=== PATIENT | female | born 1950 | race Caucasian/White ===

== ENCOUNTER 2018-06-20 14:08 | Emergency (ER) | payer BC, OTHER ==
[2018-06-20 14:46] VITALS: BP 123/64
--- NOTE | 2018-06-20 15:11 | UC ---
Complaint Female HPI - HPI Summary HPI Summary: Pt c/o sudden onset of dysuria and urinary frequency and urgency X 2 days. - History Of Current Complaint Chief Complaint: UCGU Stated Complaint: URINARY COMPLAINT Time Seen by Provider: 06/20/18 14:48 Hx Obtained From: Patient ?: No Onset/Duration: Sudden Onset, Lasting Days, Still Present Timing: Constant Severity Initially: Mild Severity Currently: Mild Pain Intensity: 2 Character: Dull, Burning Aggravating Factor(s): Urination Associated Signs And Symptoms: Positive: Negative - Risk Factors Ectopic Risk Factor: Negative Ovarian Torsion Risk Factor: Negative - Allergies/Home Medications Allergies/Adverse Reactions: Allergies Allergy/AdvReac Type Severity Reaction Status Date / Time aspirin Allergy interference Verified 06/20/18 14:48 with other meds yellow, blue, purple dyes Allergy Swelling Uncoded 06/20/18 14:47 narcotics AdvReac Severe Vomiting Uncoded 05/19/13 11:42 steroids AdvReac Intermediate heart race Uncoded 05/19/13 11:42 Home Medications: Home Medications Calcium Carbonate [Calcium] 600 mg PO BID 06/20/18 [History Confirmed 06/20/18] Lovastatin [Altoprev] 10 mg PO DAILY 06/20/18 [History Confirmed 06/20/18] Niacin 500 mg PO QAM 06/20/18 [History Confirmed 06/20/18] Non-Iron Multivitamin 1 tab PO DAILY 06/20/18 [History Confirmed 06/20/18] [place]-3 Fatty Acids/Fish Oil [Fish Oil 1,000 mg Capsule] 1 each PO DAILY [History Confirmed 06/20/18] Ubidecarenone [Co Q-10] 1 dose PO DAILY 06/20/18 [History Confirmed 06/20/18] guaiFENesin [Mucinex] 1,200 mg PO BID 06/20/18 [History Confirmed 06/20/18] PMH/Surg Hx/FS Hx/Imm Hx Previously Healthy: Yes Endocrine History: Dyslipidemia Cardiovascular History: Hypertension - Surgical History Surgical History: Yes Surgery Procedure, Year, and Place: 3 ; 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 hemmrhoidectomy, left knee 2015 [place]. shoulder. wrist. deviated septum - Family History Known Family History: Positive: Cardiac Disease - Social History Occupation: Retired Lives: With Family Alcohol Use: None Substance Use Type: None Smoking Status (MU): Never Smoked Tobacco Have You Smoked in the Last Year: No Review of Systems Constitutional: Negative Skin: Negative Eyes: Negative ENT: Negative Respiratory: Negative Cardiovascular: Negative Gastrointestinal: Negative Genitourinary: Dysuria, Frequency, Urgency Motor: Negative Neurovascular: Negative Musculoskeletal: Negative Neurological: Negative Psychological: Negative Is Patient Immunocompromised?: No All Other Systems Reviewed And Are Negative: Yes Physical Exam Triage Information Reviewed: Yes Appearance: Well-Appearing Vital Signs: Initial Vital Signs Temp 97.6 F 06/20/18 14:30 Pulse 79 06/20/18 14:30 Resp 22 06/20/18 14:30 BP 123/64 06/20/18 14:30 Pulse Ox 99 06/20/18 14:30 Vital Signs Reviewed: Yes Eye Exam: Normal ENT: Positive: Hearing grossly normal Dental Exam: Normal Neck exam: Normal Respiratory Exam: Normal Cardiovascular Exam: Normal Abdominal Exam: Other Abdomen Description: Positive: Nontender Musculoskeletal Exam: Normal Neurological Exam: Normal Psychological Exam: Normal Skin Exam: Normal Complaint Female Dx - Differential Dx/Diagnosis Differential Diagnosis/HQI/PQRI: Urinary Tract Infection Provider Diagnoses: UTI Discharge - Sign-Out/Discharge Documenting (check all that apply): Patient Departure - Discharge Plan Condition: Stable Disposition: HOME Prescriptions: Cephalexin CAP* [Keflex 500 CAP*] 500 mg PO Q8H #21 cap Patient Education Materials: Urinary Tract Infection in Women (ED) Referrals: Eladia Franz MD [Primary Care Provider] - If Needed Additional Instructions: Per institutional requirements, I have reviewed the chart, however, I was not consulted specifically or made aware of this patient by the above midlevel provider. I did not personally evaluate, interact with , or disposition this patient. - Billing Disposition and Condition Condition: STABLE Disposition: Home
--- NOTE | 2018-06-21 16:16 | UC ---
- Progress Note Progress Note: E. Coli on Cephalexin await sensitivity no change sreej 06/21/18 Discharge - Sign-Out/Discharge Documenting (check all that apply): Post-Discharge Follow Up - Discharge Plan Condition: Stable Disposition: HOME Prescriptions: Cephalexin CAP* [Keflex 500 CAP*] 500 mg PO Q8H #21 cap Patient Education Materials: Urinary Tract Infection in Women (ED) Referrals: Eladia Franz MD [Primary Care Provider] - If Needed Additional Instructions: Per institutional requirements, I have reviewed the chart, however, I was not consulted specifically or made aware of this patient by the above midlevel provider. I did not personally evaluate, interact with , or disposition this patient. - Billing Disposition and Condition Condition: STABLE Disposition: Home
== END 2018-06-20 15:20 | disposition home or self-care (01) ==
LOC: UCCORT 14:08
DX: N39.0 Urinary tract infection, site not specified (principal); B96.20 Unspecified Escherichia coli [E. coli] as the cause of diseases classified elsewhere; Z88.6 Allergy status to analgesic agent; Z88.5 Allergy status to narcotic agent; Z88.8 Allergy status to other drugs, medicaments and biological substances; I10 Essential (primary) hypertension; E78.5 Hyperlipidemia, unspecified
CPT/HCPCS: 81003; 87077; 87086; 87186; 99212; G0463

== ENCOUNTER 2018-07-03 12:08 | Emergency (ER) | payer BC, OTHER ==
--- OUTSIDE RECORDS SUMMARY | 2018-07-03 12:22 | XMS REPORT ---
:1950 External Reference #:[id number] Author Organization [facility] Address [address] [place] [address] Phone [phone] Care Team Providers Name Role Phone Eladia Franz MD Primary Care Physician Unavailable Payers Type Date Identification Numbers Payment Provider Subscriber Commercial Policy Number: [id number] [facility] Plan Camilo Harrison Group Number: [id number] [address] PayID: [id number] [place] [address] [facility] Policy Number: [id number] For Life Camilo Harrison PayID: [id number] [address] [place] [address] Problems Description No Information Family History Date Family Member(s) Problem(s) Comments Father Cataract Mother Cataract Aunt Macular Degeneration Social History Type Date Description Comments ETOH Use Denies alcohol use Smoking Patient has never smoked Allergies, Adverse Reactions, Alerts Date Description Reaction Status Severity Comments 06/20/2018 Aspirin active 06/20/2018 Narcan active 06/20/2018 Fluorescein active Medications Medication Date Status Form Strength Qnty SIG Indications Ordering Provider Amlodipine Active Tablets 10mg Osei Besylate Eladia OCHOA Lovastatin Active Tablets 10mg Eladia Franz MD Famciclovir Active Tablets 500mg Eladia Franz MD Vital Signs Date Vital Result Comment 06/20/2018 Intraocular Pressure Right Eye 14 mmHg tp Intraocular Pressure Left Eye 14 mmHg tp Results Description No Information Procedures Date CPT Code Description Status 07/05/2017 50825 Refraction Completed 07/05/2017 10420 Exam, Comprehensive, Est PT Completed 06/14/2016 15415 Refraction Completed 06/14/2016 89991 Exam, Comprehensive, Est PT Completed 06/15/2015 43909 Refraction Completed 06/15/2015 54766 Exam, Comprehensive, Est PT Completed 06/10/2014 13846 Refraction Completed 06/10/2014 85147 Exam, Comprehensive, Est PT Completed 10/16/2013 96574 Exam Comprehensive, New PT Completed Plan of Care Future Appointment(s):06/26/2019 10:30 am - Aleida Jameson [id number] - Aleida Jameson ODH25.13 Age-related nuclear cataract, bilateralComments: The patients cataract is not affecting ADL's at this time. Patient advised to call with change in vision, glare and/or halos while driving at night or difficulty reading fine print.Follow up:1 Year. Complete exam. BepcxmM12.393 Other vitreous opacities, bilateralComments:Discussed diagnosis with patient. Follow.H04.123 Dry eye syndrome of bilateral lacrimal glandsComments: Preservative free artificial tears both eyes 3-4 times per day.
--- OUTSIDE RECORDS SUMMARY | 2018-07-03 12:23 | XMS REPORT ---
:1950 External Reference #:[id number] [facility] Address [address] [address] Phone [phone] Care Team Providers Name Role Phone Eladia Franz MD Care Team Information Printed Circuit Boards Inspector Unavailable Payers Type Date Identification Numbers Payment Provider Subscriber Health Maintenance Policy Number: [facility] [place] [id number] Plan PayID: [id number] [address] [place] [address] Problems Date Description Provider Status Onset: 09/30/2011 Farrah Garcia PA Active Onset: 09/30/2011 Mixed hyperlipidemia Farrah Garcia PA Active Onset: 07/09/2008 Chronic pansinusitis Farrah Garcia PA Active Onset: 07/09/2008 Benign essential hypertension Farrah Garcia PA Active Onset: 01/03/2017 Pure hypercholesterolemia Eladia Franz MD Active Onset: 11/29/2017 Mitral valve disorder Eladia Franz MD Active Onset: 05/15/2017 Chronic otitis externa Eladia Franz MD Active Family History Date Family Member(s) Problem(s) Comments Father Heart Disease bypass in his 70s Father due to Endocarditis () - 83 Father Arthritis Father Migraine Headache Mother Arthritis Mother due to Old Age () - age 93 Mother Hypertension Mother Allergies Mother CHF Mother Rheumatic Fever Children 3 First Son No Current Problems Second Son No Current Problems Third Son No Current Problems Siblings 2 First Brother Poliomyelitis First Brother COPD smoker Second Brother Atrial Fibrillation Second Brother Hypertension Paternal Grandmother due to MT () Social History Type Date Description Comments Marital Status Lives With Spouse 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, [place] 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 [place] ETOH Use Denies alcohol use Smoking Patient has never smoked Daily Caffeine Does Not Consume Caffeine Allergies, Adverse Reactions, Alerts Date Description Reaction Status Severity Comments 11/28/2006 Epinephrine active 11/28/2006 Aspirin active 12/31/2014 Narcotic active 11/28/2016 Blue Dyes active 06/20/2017 Yellow Dye 10 active 11/29/2017 Purple Dye active Medications Medication Date Status Form Strength Qnty SIG Indications Ordering Provider Famciclovir 03/31 Active Tablets 500mg 6tabs within 24 B00.9 hours of Eladia martin cold sore take 3 pills orally once Amlodipine 01/03 Active Tablets 10mg 90tab 1 by mouth I10 C[place]ha Besylate /2016 s every day Eladia martin, in the MD morning Ibuprofen 12/30 Active Tablets 800mg 90tab 1 by mouth 845.00 Pool, /2014 s three Don[place]on, times a DO day with food prn Coenzyme Q10 Active Capsules 100mg 1 po daily Unknown / Acetic Active Solution 2% 60ml use a H60.63 [place] Acid-Aluminum /0000 directed Eladia martin Acetate to MD effected ear [place] 50 Active Capsules 1000mg OTC- 1 qhs Unknown /0000 Nystatin Active Powder [id number] 60gm apply to B37.2 [place]ha /0000 t/GM irritated Eladia martin area 2-3 times as needed after swimming Lovastatin Active Tablets 10mg 90tab take one E78.2 [place]ha /0000 s tablet by Eladia martin mouth every day Nasonex Active Suspension 50mcg/Act 3unit spray 1 J30.9 [place]ha /0000 s spray in Eladia martin, each nostril two times a day Calcium + D Active Chewtabs qd Unknown Magnesium Active Capsules 1 by mouth every day Advair Diskus Active Aerosol 250-50mcg 1 puff qd J45.20 Forshier , / /Dose ChelsyBLAZE lawrence Emu Oil Active Oil qd Guaifenesin Active Tablets ER 1200mg 2 po qd 12HR Diazepam 11/29 Hx Tablets 2mg 15tab 1/2 by M79.7 s mouth at Eladia martin, - bedtime 06/08 for severe /2018 nerve pain, taper off Famciclovir 06/20 Hx Tablets 500mg 21tab 1 by mouth B02.9 s three Eladia martin, - times a 06/27 day to treat shingles Guaifenex LA 02/08 Hx Tablets ER 600mg 30tab 2 tabs M79.7 12HR s twice a Eladia martin, - day MD 06/19 Amoxicillin/Clavu 11/28 Hx Tablets 875-125mg 20tab 1 by mouth J01.90 Digiovann lanate s every 12 a, - hours for Cadence, 12/08 10 days Valacyclovir HCL 09/26 Hx Tablets 500mg 8tabs take 4 B00.9 pills by Eladia martin, - mouth then 03/31 12 hours /2016 later repeat Diazepam 04/05 Hx Tablets 2mg 30tab 1 by mouth M79.7 s at bedtime Eladia martin, - as needed 11/29 for nerve /2017 pain and sleep Fluocinolone 12/28 Hx Cream 0.025% 60gm apply to Yrn Acetonide RIGHT arm Amie Raphael scaly area DO 01/03 2 times a day x 2 weeks and prn Amlodipine 09/28 Hx Tablets 10mg 30tab 1 by mouth R07.9 Yrn Besylate s daily Amie Raphael DO 09/12 Benzonatate 09/28 Hx Capsules 200mg 60cap Take One R05 s Capsule By Donavon, - Mouth DO 01/03 Times A Day as Needed For Cough Benzonatate 02/04 Hx Capsules 200mg 30cap 1 by mouth Pool s three Donavon, - times a DO 02/14 day as needed cough Amlodipine 02/17 Hx Capsules 10-20mg 90cap 1 po qd R07.9 Yrn, Besylate/Benazepr /2013 s [place] il Hydrochloride - DO 09/28 Nasonex 10/25 Hx Suspension 50mcg/Act 1unit 1 sprays Yrn s each Donavon, - nostril DO 07/01 Patanol 02/25 Hx Solution 0.1% 10ml 1-2 gtt ou [place] bid prn Kai, - 11/29 Patanol 02/25 Hx Solution 0.1% 10ml 1-2 gtt ou [place] bid prn Kai, - 07/01 Diphenhydramine 02/23 Hx Tablets 25mg prn QHS [place], HCL Kai, - 12/30 Diphenhydramine 02/23 Hx Tablets 25mg prn QHS [place], HCL /2008 Kai, - 07/01 Guaifenesin 11/28 Hx Solution 100mg/5ML 500un Dye Free 2 its po bid Donavon, - DO 11/28 Triamcinolone Hx Ointment 0.025% 80gm apply Pool, Acetonide / sparingly Donavon, - to DO 01/03 area bid as needed Metaxalone Hx Tablets 800mg 30tab 1 by mouth M79.7 Pool s every Donavon, - night at DO 08 bedtime as needed muscle spasm Meclizine HCL Hx Tablets 12.5mg 1-2 po tid T75.3xxS Unknown / prn - dizziness 05/15 H81.399 Guaifenesin NR - Hx Liquid 100mg/5ML 500units Dye Free M79.7 Unknown 02/08/2017 2 po bid Amlodipine - Hx Tablets 5mg 90tabs 1 by I10 Karine Franz 01/03/2017 augie Montilla MD every day Immunizations CPT Code Status Date Vaccine Reaction Lot # [id number] Given 06/08/2018 Pneumococcal 23 Immunization Adult Or [id number] Immunosuppressed Patient 29380 Given 05/15/2017 Prevnar 13 Pneumococal Conjugate Vaccine [id number] 46905 Given 08/17/2016 Fluzone Highdose Age 65 And Over KINNEYS Preservative & Antibiotic Free Q2036 Given 11/13/2015 Flulaval Immunization 00440 Given 11/13/2014 Zoster (Zostavax) 26028 Given 09/04/2014 Afluria Or Fluvirin Flu Vac Intramuscular 89416 Given 06/23/2014 Tdap (Adacel) Ages 7 And Above Only 69142 Given 07/18/2013 Afluria Or Fluvirin Flu Vac Intramuscular 52743 Given 08/09/2012 Afluria Or Fluvirin Flu Vac Intramuscular 24384 Given 08/27/2010 Afluria Or Fluvirin Flu Vac Intramuscular 88019 Given 08/27/2009 Afluria Or Fluvirin Flu Vac Intramuscular Q2039 Refused 11/29/2017 Flu Vaccine NOS Vital Signs Date Vital Result Comment 06/08/2018 Body Temperature 97.4 F Weight 227.00 lb Heart Rate 86 /min BP Systolic 130 mmHg BP Diastolic 78 mmHg Height 64.5 inches 5'4.50" O2 % BldC Oximetry 97 % ra BMI (Body Mass Index) 38.4 kg/m2 11/29/2017 Weight 227.00 lb Heart Rate 88 /min BP Systolic 124 mmHg BP Diastolic 74 mmHg Respiratory Rate 16 /min Height 64 inches 5'4" 05/25/17 BMI (Body Mass Index) 39.0 kg/m2 10/13/2017 Weight 226.00 lb Heart Rate 95 /min BP Systolic 128 mmHg BP Diastolic 78 mmHg Respiratory Rate 18 /min Height 64 inches 5'4" 05/25/17 O2 % BldC Oximetry 97 % BMI (Body Mass Index) 38.8 kg/m2 06/20/2017 Body Temperature 98.8 F Weight 222.00 lb Heart Rate 74 /min BP Systolic 132 mmHg BP Diastolic 82 mmHg Respiratory Rate 18 /min Height 64 inches 5'4" 05/25/17 BMI (Body Mass Index) 38.1 kg/m2 Pain Level 8 05/18/2017 Body Temperature 97.9 F Weight 214.00 lb Heart Rate 72 /min BP Systolic 114 mmHg BP Diastolic 74 mmHg Height 64 inches 5'4" 05/25/17 BMI (Body Mass Index) 36.7 kg/m2 05/15/2017 Weight 218.44 lb Heart Rate 80 /min BP Systolic 126 mmHg BP Diastolic 78 mmHg Respiratory Rate 16 /min Height 64 inches 5'4" 05/25/17 BMI (Body Mass Index) 37.5 kg/m2 02/08/2017 Weight 220.00 lb BP Systolic 128 mmHg 80 BP Diastolic 80 mmHg 80 BP Systolic Lying Down 130 mmHg Pulse 80 BP Diastolic Lying Down 80 mmHg Pulse 80 BP Systolic Sitting 128 mmHg Pulse 76 BP Diastolic Sitting 80 mmHg Pulse 76 BP Systolic Standing 126 mmHg Pulse 80 BP Diastolic Standing 76 mmHg Pulse 80 Height 64 inches 5'4" BMI (Body Mass Index) 37.8 kg/m2 01/03/2017 Weight 218.00 lb Heart Rate 76 /min BP Systolic 124 mmHg BP Diastolic 82 mmHg Respiratory Rate 16 /min Height 64 inches 5'4" BMI (Body Mass Index) 37.4 kg/m2 11/28/2016 Body Temperature 101.3 F Weight 214.00 lb Heart Rate 120 /min BP Systolic 110 mmHg BP Diastolic 70 mmHg Respiratory Rate 18 /min Height 64 inches 5'4" O2 % BldC Oximetry 98 % Ra BMI (Body Mass Index) 36.7 kg/m2 09/26/2016 Body Temperature 98.3 F Weight 213.00 lb Heart Rate 78 /min BP Systolic 130 mmHg BP Diastolic 72 mmHg BP Systolic Recheck 126 mmHg BP Diastolic Recheck 74 mmHg Respiratory Rate 18 /min Height 64 inches 5'4" O2 % BldC Oximetry 98 % BMI (Body Mass Index) 36.6 kg/m2 08/12/2016 Body Temperature 98.8 F Weight 202.00 lb Heart Rate 76 /min BP Systolic 130 mmHg BP Diastolic 70 mmHg BP Systolic Recheck 126 mmHg BP Diastolic Recheck 74 mmHg Respiratory Rate 18 /min Height 64 inches 5'4" O2 % BldC Oximetry 98 % BMI (Body Mass Index) 34.7 kg/m2 06/22/2016 Body Temperature 98.0 F Weight 218.00 lb Heart Rate 68 /min BP Systolic 120 mmHg BP Diastolic 70 mmHg Respiratory Rate 18 /min Height 64 inches 5'4" O2 % BldC Oximetry 96 % BMI (Body Mass Index) 37.4 kg/m2 01/22/2016 Body Temperature 99.7 F Weight 224.00 lb Heart Rate 74 /min BP Systolic 128 mmHg BP Diastolic 78 mmHg Respiratory Rate 18 /min Height 64.25 inches 5'4.25" BMI (Body Mass Index) 38.1 kg/m2 12/28/2015 Weight 225.00 lb Heart Rate 70 /min BP Systolic 132 mmHg BP Diastolic 72 mmHg Respiratory Rate 18 /min Height 64.25 inches 5'4.25" BMI (Body Mass Index) 38.3 kg/m2 10/27/2015 Weight 229.00 lb Heart Rate 76 /min BP Systolic 134 mmHg BP Diastolic 78 mmHg Respiratory Rate 18 /min Height 64.25 inches 5'4.25" BMI (Body Mass Index) 39.0 kg/m2 09/28/2015 Body Temperature 98.6 F Weight 224.00 lb Heart Rate 76 /min BP Systolic 130 mmHg BP Diastolic 74 mmHg Respiratory Rate 18 /min Height 64.25 inches 5'4.25" O2 % BldC Oximetry 99 % BMI (Body Mass Index) 38.1 kg/m2 07/01/2015 Weight 224.00 lb Heart Rate 72 /min BP Systolic 128 mmHg BP Diastolic 70 mmHg Respiratory Rate 18 /min Height 64.25 inches 5'4.25" BMI (Body Mass Index) 38.1 kg/m2 03/06/2015 Body Temperature 98.8 F Weight 213.00 lb Heart Rate 84 /min BP Systolic 126 mmHg BP Diastolic 70 mmHg Respiratory Rate 18 /min Height 64.25 inches 5'4.25" BMI (Body Mass Index) 36.3 kg/m2 02/04/2015 Body Temperature 99.2 F Weight 224.00 lb Heart Rate 92 /min BP Systolic 136 mmHg BP Diastolic 80 mmHg Respiratory Rate 20 /min Height 64.25 inches 5'4.25" O2 % BldC Oximetry 98 % BMI (Body Mass Index) 38.1 kg/m2 01/13/2015 Weight 224.00 lb Heart Rate 76 /min BP Systolic 132 mmHg BP Diastolic 80 mmHg Respiratory Rate 18 /min Height 64.25 inches 5'4.25" BMI (Body Mass Index) 38.1 kg/m2 12/31/2014 Weight 222.00 lb Heart Rate 74 /min BP Systolic 118 mmHg BP Diastolic 72 mmHg Respiratory Rate 18 /min Height 64.25 inches 5'4.25" BMI (Body Mass Index) 37.8 kg/m2 12/30/2014 Weight 227.00 lb Heart Rate 76 /min BP Systolic 112 mmHg BP Diastolic 72 mmHg Respiratory Rate 18 /min Height 64.25 inches 5'4.25" BMI (Body Mass Index) 38.7 kg/m2 12/12/2014 Body Temperature 97.9 F Weight 228.00 lb Heart Rate 70 /min BP Systolic 130 mmHg BP Diastolic 72 mmHg Respiratory Rate 18 /min 10/22/2014 Weight 222.00 lb Heart Rate 72 /min BP Systolic 124 mmHg BP Diastolic 70 mmHg Respiratory Rate 18 /min Height 64.25 inches 5'4.25" 06/23/2014 Weight 218.00 lb Heart Rate 70 /min BP Systolic 130 mmHg BP Diastolic 74 mmHg Respiratory Rate 18 /min Height 64.25 inches 5'4.25" 05/28/2014 Body Temperature 98.7 F Weight 218.00 lb Heart Rate 66 /min BP Systolic 124 mmHg BP Diastolic 76 mmHg Respiratory Rate 18 /min Height 64.25 inches 5'4.25" 04/21/2014 BP Systolic 124 mmHg BP Diastolic 72 mmHg 04/21/2014 Body Temperature 98.9 F Weight 213.00 lb Heart Rate 68 /min BP Systolic 130 mmHg BP Diastolic 70 mmHg Respiratory Rate 18 /min Height 64.25 inches 5'4.25" 02/17/2014 Body Temperature 97.8 F Weight 220.00 lb Heart Rate 78 /min BP Systolic 130 mmHg BP Diastolic 80 mmHg Respiratory Rate 18 /min Height 64.25 inches 5'4.25" O2 % BldC Oximetry 98 % 01/22/2014 BP Systolic 138 mmHg BP Diastolic 88 mmHg 01/22/2014 Weight 218.00 lb Down 8# Heart Rate 70 /min BP Systolic 140 mmHg BP Diastolic 84 mmHg Respiratory Rate 18 /min Height 64.25 inches 5'4.25" 10/18/2013 Body Temperature 97.9 F Weight 226.00 lb Heart Rate 64 /min BP Systolic 130 mmHg BP Diastolic 80 mmHg Respiratory Rate 18 /min 07/18/2013 Weight 216.00 lb Heart Rate 88 /min BP Systolic 134 mmHg BP Diastolic 80 mmHg Respiratory Rate 20 /min 06/24/2013 Weight 216.00 lb Heart Rate 74 /min BP Systolic 130 mmHg BP Diastolic 76 mmHg Respiratory Rate 18 /min 06/20/2013 Body Temperature 98.8 F Weight 214.00 lb Heart Rate 68 /min BP Systolic 138 mmHg BP Diastolic 78 mmHg 05/23/2013 Body Temperature 97.6 F Weight 216.00 lb Heart Rate 68 /min BP Systolic 122 mmHg BP Diastolic 72 mmHg Respiratory Rate 18 /min 01/15/2013 Weight 226.31 lb Heart Rate 84 /min BP Systolic 124 mmHg L/LG BP Diastolic 80 mmHg L/LG Respiratory Rate 19 /min Height 64 inches 5'4" 11/30/2012 Body Temperature 99.0 F Weight 224.00 lb Heart Rate 92 /min BP Systolic 110 mmHg BP Diastolic 78 mmHg Respiratory Rate 22 /min O2 % BldC Oximetry 96 % 10/22/2012 Body Temperature 98.8 F Weight 228.00 lb Heart Rate 70 /min BP Systolic 130 mmHg BP Diastolic 70 mmHg Respiratory Rate 18 /min 09/11/2012 Weight 225.00 lb Heart Rate 76 /min BP Systolic 124 mmHg L/LG BP Diastolic 80 mmHg L/LG Respiratory Rate 19 /min Height 64 inches 5'4" 08/09/2012 Weight 227.00 lb Heart Rate 70 /min BP Systolic 142 mmHg BP Diastolic 72 mmHg Respiratory Rate 18 /min 05/10/2012 BP Systolic 136 mmHg BP Diastolic 88 mmHg 05/10/2012 Body Temperature 98.3 F Weight 227.00 lb Heart Rate 78 /min BP Systolic 130 mmHg BP Diastolic 76 mmHg Respiratory Rate 18 /min 03/30/2012 BP Systolic 132 mmHg BP Diastolic 90 mmHg 03/30/2012 Weight 230.00 lb Heart Rate 100 /min BP Systolic 142 mmHg BP Diastolic 80 mmHg Respiratory Rate 20 /min 02/06/2012 Weight 231.25 lb Heart Rate 80 /min BP Systolic 130 mmHg BP Diastolic 78 mmHg Respiratory Rate 19 /min Height 63.75 inches 5'3.75" Done On 02/06/12 10/25/2011 Body Temperature 98.6 F Weight 224.38 lb Heart Rate 80 /min BP Systolic 142 mmHg BP Diastolic 84 mmHg Respiratory Rate 18 /min Height 63.75 inches 5'3.75"/-201009/30/2011 Weight 222.00 lb Heart Rate 80 /min BP Systolic 120 mmHg BP Diastolic 90 mmHg Respiratory Rate 20 /min Height 63.75 inches 5'3.75" 07/04/2011 Body Temperature 98.7 F Weight 213.00 lb Heart Rate 72 /min BP Systolic 132 mmHg BP Diastolic 80 mmHg Respiratory Rate 16 /min Height 63.75 inches 5'3.75" 02/2102/28/2011 BP Systolic 132 mmHg BP Diastolic 84 mmHg 02/28/2011 Weight 211.00 lb Down 1# Heart Rate 78 /min BP Systolic 118 mmHg R/LG BP Diastolic 86 mmHg R/LG Respiratory Rate 16 /min Height 63.75 inches 5'3.75" 08/27/2010 BP Systolic 124 mmHg BP Diastolic 86 mmHg 08/27/2010 Weight 212.00 lb Heart Rate 80 /min BP Systolic 114 mmHg BP Diastolic 80 mmHg Respiratory Rate 16 /min 06/18/2010 BP Systolic 118 mmHg standing BP Diastolic 74 mmHg standing 06/18/2010 Weight 191.00 lb Heart Rate 84 /min BP Systolic 120 mmHg sitting BP Diastolic 82 mmHg sitting Respiratory Rate 16 /min 05/27/2010 BP Systolic 136 mmHg BP Diastolic 86 mmHg 05/27/2010 Weight 214.00 lb Heart Rate 72 /min BP Systolic 132 mmHg l arm BP Diastolic 84 mmHg l arm Respiratory Rate 16 /min 04/30/2010 BP Systolic 158 mmHg BP Diastolic 92 mmHg 04/30/2010 Weight 215.00 lb Heart Rate 78 /min BP Systolic 154 mmHg LEFT Arm/Large Cuff BP Diastolic 94 mmHg LEFT Arm/Large Cuff 02/25/2010 BP Systolic 136 mmHg BP Diastolic 82 mmHg 02/25/2010 Weight 219.00 lb Heart Rate 80 /min BP Systolic 150 mmHg 123/78 Outpt B/P Check At Local Pharmacy BP Diastolic 100 mmHg 123/78 Outpt B/P Check At Local Pharmacy Respiratory Rate 16 /min 08/27/2009 Weight 217.00 lb Heart Rate 72 /min BP Systolic 120 mmHg BP Diastolic 80 mmHg Respiratory Rate 16 /min 05/27/2009 Weight 212.00 lb Heart Rate 84 /min BP Systolic 120 mmHg BP Diastolic 80 mmHg 03/04/2009 Weight 210.00 lb Heart Rate 74 /min BP Systolic 130 mmHg BP Diastolic 80 mmHg Respiratory Rate 16 /min 02/23/2009 BP Systolic 136 mmHg BP Diastolic 84 mmHg 02/23/2009 Weight 211.00 lb Down 1# Heart Rate 72 /min BP Systolic 148 mmHg R/LG BP Diastolic 90 mmHg R/LG Respiratory Rate 15 /min 01/16/2009 Body Temperature 98.1 F Weight 212.00 lb Heart Rate 80 /min BP Systolic 140 mmHg BP Diastolic 90 mmHg Respiratory Rate 14 /min O2 % BldC Oximetry 98 % 10/22/2008 Weight 209.00 lb Heart Rate 72 /min BP Systolic 128 mmHg BP Diastolic 84 mmHg Respiratory Rate 16 /min Height 64 inches 5'4" 04/14/2008 BP Systolic 116 mmHg BP Diastolic 84 mmHg 04/14/2008 Weight 200.00 lb Heart Rate 80 /min BP Systolic 120 mmHg BP Diastolic 90 mmHg Respiratory Rate 16 /min Height 64 inches 5'4" 12/17/2007 Weight 202.00 lb Heart Rate 66 /min BP Systolic 114 mmHg BP Diastolic 86 mmHg Respiratory Rate 18 /min Height 64 inches 5'4" 10/19/2007 Weight 199.00 lb With Boots Heart Rate 92 /min BP Systolic 122 mmHg BP Diastolic 74 mmHg Respiratory Rate 18 /min Height 64 inches 5'4" 08/30/2007 BP Systolic 144 mmHg BP Diastolic 82 mmHg 08/30/2007 Weight 203.00 lb Heart Rate 72 /min BP Systolic 150 mmHg BP Diastolic 98 mmHg Respiratory Rate 18 /min Height 64 inches 5'4" 02/27/2007 Weight 222.00 lb With Boots Heart Rate 68 /min BP Systolic 124 mmHg BP Diastolic 80 mmHg Respiratory Rate 18 /min Height 64 inches 5'4" 11/28/2006 BP Systolic 128 mmHg BP Diastolic 88 mmHg 11/28/2006 Weight 225.00 lb Heart Rate 88 /min BP Systolic 140 mmHg BP Diastolic 90 mmHg Height 64 inches 5'4" Results Test Date Test Result H/L Range Note Lipid 06/01/2018 Cholesterol 188 mg/dL 50-199 1 Triglycerides 134 mg/dL 30-200 1 HDL 45 mg/dL 35-85 1, 2 Chol/ HDL Ratio 4.2 ratio 3.7-5.6 1 VLDL 27 mg/dL 2-29 1 LDL (Calc) 116 mg/dL High 20-99 1, 3 Comprehensive Met Panel-[facility] 06/01/2018 Sodium 141 mmol/L 135-146 1, 4 Potassium 3.9 mmol/L 3.5-5.2 1 Chloride# 103 mmol/L 97-110 1, 5 Carbon Dioxide 28 mmol/L 24-34 1 Glucose 101 mg/dL 70-105 1 BUN 18 mg/dL 6-26 1 Creatinine 0.7 mg/dL 0.5-1.4 1 Calcium 9.4 mg/dL 8.5-10.2 1 Total Protein 6.7 g/dL 6.0-8.0 1 Albumin 4.3 g/dL 3.6-4.9 1 Globulin 2.4 g/dL 2.0-3.5 1 A/G Ratio 1.8 Ratio 1.0-2.2 1 Total Bilirubin 0.4 mg/dL 0.1-1.3 1 Alkaline Phosphatase 77 U/L 24-140 1 Alt 25 U/L 3-42 1 Ast 19 U/L 8-42 1 Isaura Egfr >60 >60 1, 6 Non Isaura Egfr >60 >60 1, 7 Anion Gap 10 mmol/L 5-15 1, 8 Laboratory test finding 06/01/2018 CPK 73 U/L 12-199 1 CBC With Auto Diff 11/22/2017 WBC 5.1 K/uL 4.1-11.0 9 RBC 5.08 M/uL 4.00-5.40 9 Hemoglobin 15.3 gm/dL 12.0-16.0 9 Hematocrit 45.6 % 36.0-47.0 9 MCV 89.8 fL 80.0-97.0 9 MCH 30.1 pg 27.0-32.0 9 MCHC 33.5 g/dL 32.0-36.0 9 RDW 13.8 % 11.5-14.5 9 PLT Count 167 K/ul 140-400 9 MPV 10.5 FL 7.1-10.7 9 Neutrophil 67.1 % 35.0-75.0 9 Lymphocyte 22.3 % 16.0-52.0 9 Monocyte 7.4 % 2.0-10.0 9 Eosinophil 2.3 % 0.0-5.0 9 Basophil 0.9 % 0.0-4.0 9 Abs Neutrophils 3.5 K/uL 2.1-8.0 9 Abs Lymphocytes 1.1 K/uL 0.8-5.5 9 Abs Monocytes 0.4 K/uL 0.1-1.0 9 Abs Eosinophils 0.1 K/uL 0.0-0.5 9 Abs Basophils 0.0 K/uL 0.0-0.3 9 Laboratory test finding 11/22/2017 CPK 64 U/L 12-199 9 TSH 2.35 uIU/mL 0.35-4.94 9 Comprehensive Met Panel-[facility] 11/22/2017 Sodium 143 mmol/L 135-146 9, 10 Potassium 4.1 mmol/L 3.5-5.2 9 Chloride# 104 mmol/L 97-110 9, 11 Carbon Dioxide 27 mmol/L 24-34 9 Glucose 98 mg/dL 70-105 9 Creatinine 0.8 mg/dL 0.5-1.4 9 Calcium 9.7 mg/dL 8.5-10.2 9 Total Protein 6.6 g/dL 6.0-8.0 9 Albumin 4.4 g/dL 3.6-4.9 9 Globulin 2.2 g/dL 2.0-3.5 9 A/G Ratio 2.0 Ratio 1.0-2.2 9 Total Bilirubin 0.5 mg/dL 0.1-1.3 9 Alkaline Phosphatase 77 U/L 24-140 9 Alt 36 U/L 3-42 9 Ast 23 U/L 8-42 9 Isaura Egfr >60 >60 9, 12 Non Isaura Egfr >60 >60 9, 13 Anion Gap 12 mmol/L 7-16 9, 14 BUN 14 mg/dL 6-26 9 Lipid 11/22/2017 Cholesterol 193 mg/dL 50-199 9 Triglycerides 177 mg/dL 30-200 9 HDL 47 mg/dL 35-85 9, 15 Chol/ HDL Ratio 4.1 ratio 3.7-5.6 9 VLDL 35 mg/dL High 2-29 9 LDL (Calc) 111 mg/dL High 20-99 9, 16 Microalb/Creat Panel 11/22/2017 Creatinine, Urine 119.9 mg/dL 9, 17 Microalbumin < 7.0 ug/ml 5.0-20.0 9 Laboratory test finding 05/23/2017 Fit(Fecal Occult Blood) Negative Negative 18 Lipid 05/08/2017 Cholesterol 171 mg/dL <200 19 Triglycerides 139 mg/dL <150 20 HDL Cholesterol 51 mg/dL >40 21 LDL-Cholesterol 92 mg/dL < 100 22 Comprehensive Metabolic (CMP) 05/08/2017 Glucose 103 mg/dL 74-106 BUN 13 mg/dL 7-18 Creatinine 0.7 mg/dL 0.6-1.3 Glom Filtration Rate, Estimate >60 mL/min >60 If >60 mL/min >60 23 BUN/Creat 18.5 ratio Sodium 141 mmol/L 136-145 Potassium 3.7 mmol/L 3.5-5.1 Chloride 106 mmol/L 98-107 Carbon Dioxide 28 mmol/L 21-32 Anion Gap 7 mEq/L Low 8-16 Calcium 9.2 mg/dL 8.5-10.1 Total Protein 7.7 g/dL 6.4-8.2 Albumin 3.6 g/dL 3.4-5.0 Globulin 4.1 g/dL 1.9-4.3 Alb/Glob 0.9 ratio Bilirubin,Total 0.4 mg/dL 0.2-1.0 Sgot/Ast 14 U/L Low 15-37 24 SGPT/Alt 30 U/L 12-78 Alkaline Phosphatase 93 U/L 45-117 Laboratory test finding 05/08/2017 CK 66 U/L 26-192 CBC With Auto Diff 01/03/2017 WBC 5.8 K/uL 4.1-11.0 25 RBC 5.22 M/uL 4.00-5.40 25 Hemoglobin 15.7 gm/dL 12.0-16.0 25 Hematocrit 46.5 % 36.0-47.0 25 MCV 89.0 fL 80.0-97.0 25 MCH 30.0 pg 27.0-32.0 25 MCHC 33.7 g/dL 32.0-36.0 25 RDW 13.5 % 11.5-14.5 25 PLT Count 199 K/ul 140-400 25 Neutrophil 61.3 % 35.0-75.0 25 Lymphocyte 29.0 % 16.0-52.0 25 Monocyte 7.0 % 2.0-10.0 25 Eosinophil 1.7 % 0.0-5.0 25 Basophil 1.0 % 0.0-4.0 25 Abs Neutrophils 3.6 K/uL 2.1-8.0 25 Abs Lymphocytes 1.7 K/uL 0.8-5.5 25 Abs Monocytes 0.4 K/uL 0.1-1.0 25 Abs Eosinophils 0.1 K/uL 0.0-0.5 25 Abs Basophils 0.1 K/uL 0.0-0.3 25 Comprehensive Metabolic (CMP) 01/03/2017 Sodium 138 mmol/L 134-142 25 Potassium 5.1 mmol/L 3.5-5.2 25 Chloride 100 mmol/L 97-109 25 Carbon Dioxide 32 mmol/L 24-34 25 Glucose 102 mg/dL 70-105 25 BUN 15 mg/dL 6-26 25 Creatinine 0.6 mg/dL 0.5-1.4 25 Calcium 10.4 mg/dL High 8.5-10.2 25 Total Protein 7.1 g/dL 6.0-8.0 25 Albumin 4.4 g/dL 3.6-4.9 25 Globulin 2.7 g/dL 2.0-3.5 25 A/G Ratio 1.6 Ratio 1.0-2.2 25 Total Bilirubin 0.4 mg/dL 0.1-1.3 25 Alkaline Phosphatase 72 U/L 24-140 25 Alt 25 U/L 3-42 25 Ast 18 U/L 8-42 25 Anion Gap 11 mmol/L 6-14 25 Isaura Egfr >60 >60 25, 26 Non Isaura Egfr >60 >60 25, 27 Lipid 01/03/2017 Cholesterol 175 mg/dL 50-199 25 Triglycerides 253 mg/dL High 30-200 25 HDL 42 mg/dL 35-85 25, 28 Chol/ HDL Ratio 4.2 ratio 3.7-5.6 25 VLDL 51 mg/dL High 2-29 25 LDL (Calc) 82 mg/dL 20-99 25, 29 Laboratory test 01/03/2017 CPK 63 U/L 12-199 25 finding Laboratory test 01/03/2017 Hepatitis C Virus NONREACTIVE Nonreactive 25 finding Antibody [facility] ([facility]) 12/27/2016 Glucose 108 mg/dL High 74-106 30 BUN 18 mg/dL 7-18 30 Creatinine 0.7 mg/dL 0.6-1.3 30 Glom Filtration Rate, Estimate >60 mL/min >60 30 If >60 mL/min >60 30, 31 BUN/Creat 25.7 ratio 30 Sodium 143 mmol/L 136-145 30 Potassium 3.9 mmol/L 3.5-5.1 30 Chloride 106 mmol/L 98-107 30 Carbon Dioxide 29 mmol/L 21-32 30 Anion Gap 8 mEq/L 8-16 30 Calcium 9.0 mg/dL 8.5-10.1 30 Basic ([facility]) 08/12/2016 Sodium 140 mmol/L 134-142 Potassium 4.4 mmol/L 3.5-5.2 Chloride 103 mmol/L 97-109 Carbon Dioxide 31 mmol/L 24-34 Glucose 94 mg/dL 70-105 BUN 17 mg/dL 6-26 Creatinine 0.6 mg/dL 0.5-1.4 Calcium 9.5 mg/dL 8.5-10.2 Anion Gap 10 mmol/L 6-14 Non Isaura Egfr >60 >60 32 Isaura Egfr >60 >60 33 CBC With Auto Diff 08/12/2016 WBC 5.3 K/uL 4.1-11.0 RBC 5.13 M/uL 4.00-5.40 Hemoglobin 15.4 gm/dL 12.0-16.0 Hematocrit 45.7 % 36.0-47.0 MCV 89.0 fL 80.0-97.0 MCH 29.9 pg 27.0-32.0 MCHC 33.6 g/dL 32.0-36.0 RDW 14.1 % 11.5-14.5 PLT Count 171 K/ul 140-400 Neutrophil 66.2 % 35.0-75.0 Lymphocyte 24.2 % 16.0-52.0 Monocyte 7.7 % 2.0-10.0 Eosinophil 1.2 % 0.0-5.0 Basophil 0.7 % 0.0-4.0 Abs Neutrophils 3.5 K/uL 2.1-8.0 Abs Lymphocytes 1.3 K/uL 0.8-5.5 Abs Monocytes 0.4 K/uL 0.1-1.0 Abs Eosinophils 0.1 K/uL 0.0-0.5 Abs Basophils 0.0 K/uL 0.0-0.3 Protime 08/12/2016 Protime 13.6 seconds 12.0-14.4 Inr 1.1 0.9-1.1 34 Laboratory test finding 08/12/2016 Act Partial Thrombo 36.3 seconds High 23.4-35.0 35 Time CBC With Auto Diff 06/22/2016 WBC 6.1 K/uL 4.1-11.0 RBC 5.23 M/uL 4.00-5.40 Hemoglobin 15.9 gm/dL 12.0-16.0 Hematocrit 46.0 % 36.0-47.0 MCV 87.9 fL 80.0-97.0 MCH 30.3 pg 27.0-32.0 MCHC 34.5 g/dL 32.0-36.0 RDW 13.5 % 11.5-14.5 PLT Count 178 K/ul 140-400 Neutrophil 66.3 % 35.0-75.0 Lymphocyte 24.0 % 16.0-52.0 Monocyte 7.4 % 2.0-10.0 Eosinophil 1.4 % 0.0-5.0 Basophil 0.9 % 0.0-4.0 Abs Neutrophils 4.0 K/uL 2.1-8.0 Abs Lymphocytes 1.5 K/uL 0.8-5.5 Abs Monocytes 0.4 K/uL 0.1-1.0 Abs Eosinophils 0.1 K/uL 0.0-0.5 Abs Basophils 0.1 K/uL 0.0-0.3 Protime 06/22/2016 Prothrombin Time 10.5 sec 10.2-12.0 Inr 1.0 % Low 2.0-3.0 Laboratory test finding 06/22/2016 Aptt 28.6 s (22.0-32.6) 36 Laboratory test finding 06/22/2016 Hemoglobin A1c 5.8 % 4.1-5.9 37 Basic (BMP) 06/22/2016 Sodium 139 mmol/L 134-142 37 Potassium 4.3 mmol/L 3.5-5.2 37 Chloride 102 mmol/L 97-109 37 Carbon Dioxide 29 mmol/L 24-34 37 Glucose 92 mg/dL 70-105 37 BUN 16 mg/dL 6-26 37 Creatinine 0.7 mg/dL 0.5-1.4 37 Calcium 9.7 mg/dL 8.5-10.2 37 Anion Gap 12 mmol/L 6-14 37 Non Isaura Egfr >60 >60 37, 38 Isaura Egfr >60 >60 37, 39 Lipid Treatment 06/22/2016 Cholesterol 151 mg/dL 50-199 37 Triglycerides 97 mg/dL 30-200 37 HDL 45 mg/dL 35-85 37, 40 Chol/ HDL Ratio 3.4 ratio Low 3.7-5.6 37 VLDL 19 mg/dL 2-29 37 LDL (Calc) 87 mg/dL 20-99 37, 41 Alt 28 U/L 3-42 37 Ast 22 U/L 8-42 37 BMP (Basic) 12/17/2015 Basic Metabolic Panel (SEE NOTE) 42 Glucose 110 mg/dL High 74-106 BUN 11 mg/dL 7-18 Creatinine 0.7 mg/dL 0.6-1.3 Glom Filtration Rate, Estimate >60 mL/min >60 If >60 mL/min >60 43 BUN/Creat 15.7 ratio Sodium 141 mmol/L 136-145 Potassium 4.0 mmol/L 3.5-5.1 Chloride 105 mmol/L 98-107 Carbon Dioxide 30 mmol/L 21-32 Anion Gap 6 mEq/L Low 8-16 Calcium 8.7 mg/dL 8.5-10.1 CBC With Auto Diff 12/17/2015 White Blood Count 4.5 K/uL 3.1-10.7 Red Blood Count 5.07 M/uL 3.90-5.40 Hemoglobin 15.4 gm/dL 11.6-15.8 Hematocrit 45.1 % 36.0-46.1 Mean Cell Volume 89.0 fl 80.9-99.0 Mean Corpuscular HGB 30.4 pg 25.9-32.7 Mean Corpuscular HGB Conc 34.1 g/dL 30.8-34.3 Platelet Count 206 K/uL 155-360 Red Cell Distri Width SD 42.4 fl 3-47 Red Cell Distri Width %CV 13.4 % 11.7-14.4 Mean Platelet Volume 11.2 fL 8.9-12.4 Neut% 59.9 % 40.4-72.8 Lymph % 29.0 % 17.0-46.1 [place] % 8.0 % 4.3-13.2 Eo% 2.4 % 0.0-6.6 Bas% 0.7 % 0.0-1.1 Neut# 2.71 K/uL 1.8-7.0 Lymph # 1.31 K/uL Low 1.8-7.0 [place] # 0.36 K/uL 0.3-0.9 Eos # 0.11 K/uL 0.0-0.5 Baso # 0.03 K/uL 0.0-0.1 Hepatic (Liver) Panel 12/17/2015 Total Protein 7.3 g/dL 6.4-8.2 Albumin 3.7 g/dL 3.4-5.0 Globulin 3.6 g/dL 1.9-4.3 Alb/Glob 1.0 ratio Bilirubin,Total 0.4 mg/dL 0.2-1.0 Bilirubin,Direct 0.1 mg/dL 0.0-0.2 Bilirubin,Indirect 0.3 mg/dL 0.0-0.9 Sgot/Ast 29 U/L 15-37 SGPT/Alt 56 U/L 12-78 Alkaline Phosphatase 85 U/L 45-117 Lipid Panel 12/17/2015 Cholesterol 162 mg/dL <200 44 Triglycerides 130 mg/dL <150 45 HDL Cholesterol 36 mg/dL Low >40 46 LDL-Cholesterol 100 mg/dL < 100 47 Laboratory test finding 09/17/2015 Troponin-I < 0.015 ng/mL 48 Comprehensive Metabolic Panel 09/16/2015 Glucose 114 mg/dL High 74-106 BUN 15 mg/dL 7-18 Creatinine 0.8 mg/dL 0.6-1.3 Glom Filtration Rate, Estimate >60 mL/min >60 If >60 mL/min >60 49 BUN/Creat 18.7 ratio Sodium 136 mmol/L 136-145 Potassium 3.7 mmol/L 3.5-5.1 Chloride 103 mmol/L 98-107 Carbon Dioxide 25 mmol/L 21-32 Anion Gap 8 mEq/L 8-16 Calcium 8.9 mg/dL 8.5-10.1 Total Protein 7.4 g/dL 6.4-8.2 Albumin 3.9 g/dL 3.4-5.0 Globulin 3.5 g/dL 1.9-4.3 Alb/Glob 1.1 ratio Bilirubin,Total 0.2 mg/dL 0.2-1.0 Sgot/Ast 24 U/L 15-37 SGPT/Alt 46 U/L 12-78 Alkaline Phosphatase 108 U/L 45-117 Laboratory test finding 09/16/2015 CK 99 U/L 26-192 Troponin-I < 0.015 ng/mL 50 CBC W/Automated Diff 09/16/2015 White Blood Count 7.4 K/uL 3.1-10.7 Red Blood Count 4.84 M/uL 3.90-5.40 Hemoglobin 14.8 gm/dL 11.6-15.8 Hematocrit 43.5 % 36.0-46.1 Mean Cell Volume 89.9 fl 80.9-99.0 Mean Corpuscular HGB 30.6 pg 25.9-32.7 Mean Corpuscular HGB Conc 34.0 g/dL 30.8-34.3 Platelet Count 202 K/uL 155-360 Red Cell Distri Width SD 43.5 fl 3-47 Red Cell Distri Width %CV 13.6 % 11.7-14.4 Mean Platelet Volume 11.7 fL 8.9-12.4 Neut% 63.3 % 40.4-72.8 Lymph % 23.1 % 17.0-46.1 [place] % 12.0 % 4.3-13.2 Eo% 1.2 % 0.0-6.6 Bas% 0.4 % 0.0-1.1 Neut# 4.65 K/uL 1.0-7.0 Lymph # 1.70 K/uL Low 1.8-7.0 [place] # 0.88 K/uL 0.3-0.9 Eos # 0.09 K/uL 0.0-0.5 Baso # 0.03 K/uL 0.0-0.1 BMP (Basic) 06/25/2015 Glucose 96 mg/dL 74-106 BUN 15 mg/dL 7-18 Creatinine 0.7 mg/dL 0.6-1.3 Glom Filtration Rate, Estimate >60 mL/min >60 If >60 mL/min >60 51 BUN/Creat 21.4 ratio Sodium 139 mmol/L 136-145 Potassium 3.9 mmol/L 3.5-5.1 Chloride 105 mmol/L 98-107 Carbon Dioxide 28 mmol/L 21-32 Anion Gap 6 mEq/L Low 8-16 Calcium 9.0 mg/dL 8.5-10.1 CBC With Auto Diff 06/25/2015 White Blood Count 5.0 K/uL 3.1-10.7 Red Blood Count 4.75 M/uL 3.90-5.40 Hemoglobin 14.7 gm/dL 11.6-15.8 Hematocrit 43.4 % 36.0-46.1 Mean Cell Volume 91.4 fl 80.9-99.0 Mean Corpuscular HGB 30.9 pg 25.9-32.7 Mean Corpuscular HGB Conc 33.9 g/dL 30.8-34.3 Platelet Count 213 K/uL 155-360 Red Cell Distri Width SD 44.4 fl 3-47 Red Cell Distri Width %CV 13.5 % 11.7-14.4 Mean Platelet Volume 11.9 fL 8.9-12.4 Neut% 55.6 % 40.4-72.8 Lymph % 31.3 % 17.0-46.1 [place] % 10.5 % 4.3-13.2 Eo% 2.0 % 0.0-6.6 Bas% 0.6 % 0.0-1.1 Neut# 2.76 K/uL 1.0-7.0 Lymph # 1.55 K/uL Low 1.8-7.0 [place] # 0.52 K/uL 0.3-0.9 Eos # 0.10 K/uL 0.0-0.5 Baso # 0.03 K/uL 0.0-0.1 Liver Function Tests 06/25/2015 Total Protein 7.2 g/dL 6.4-8.2 Albumin 3.5 g/dL 3.4-5.0 Globulin 3.7 g/dL 1.9-4.3 Alb/Glob 0.9 ratio Bilirubin,Total 0.4 mg/dL 0.2-1.0 Bilirubin,Direct < 0.1 mg/dL 0.0-0.2 Bilirubin,Indirect 0.3 mg/dL 0.0-0.9 Sgot/Ast 16 U/L 15-37 SGPT/Alt 32 U/L 12-78 Alkaline Phosphatase 90 U/L 45-117 LDL Cholesterol Profile 06/25/2015 Cholesterol 182 mg/dL < 200 52 Triglycerides 226 mg/dL < 150 53 HDL Cholesterol 34 mg/dL > 40 54 LDL-Cholesterol 103 mg/dL < 100 55 CBC With Auto Diff 02/04/2015 WBC 4.2 K/uL 4.1-11.0 56 RBC 4.50 M/uL 4.00-5.40 56 Hemoglobin 13.7 gm/dL 12.0-16.0 56 Hematocrit 40.4 % 36.0-47.0 56 MCV 89.7 fL 80.0-97.0 56 MCH 30.3 pg 27.0-32.0 56 MCHC 33.8 g/dL 32.0-36.0 56 RDW 13.6 % 11.5-14.5 56 PLT Count 170 K/ul 140-400 56 Neutrophil 57.1 % 35.0-75.0 56 Lymphocyte 29.6 % 16.0-52.0 56 Monocyte 10.2 % High 2.0-10.0 56 Eosinophil 2.4 % 0.0-5.0 56 Basophil 0.7 % 0.0-4.0 56 Abs Neutrophils 2.4 K/uL 2.1-8.0 56 Abs Lymphocytes 1.3 K/uL 0.8-5.5 56 Abmon 0.4 K/uL 0.1-1.0 56 Abs Eosinophils 0.1 K/uL 0.0-0.5 56 Abs Basophils 0.0 K/uL 0.0-0.3 56 Basic (BMP) 02/04/2015 Sodium 137 mmol/L 134-142 56 Potassium 4.3 mmol/L 3.5-5.2 56 Chloride 104 mmol/L 97-109 56 Carbon Dioxide 23 Electrolytes <SEE NOTE> mmol/L Low 24-34 56, 57 Glucose 121 mg/dL High 70-105 56 BUN 14 mg/dL 6-26 56 Creatinine 0.6 mg/dL 0.5-1.4 56 Calcium 9.2 mg/dL 8.5-10.2 56 Anion Gap 14 mmol/L 6-14 56 Non Isaura Egfr >60 >60 56, 58 Isaura Egfr >60 >60 56, 59 PT+PTT -RL 02/04/2015 Aptt 25.9 s (22.0-32.6) 56, 60 Protime 02/04/2015 PT 10.3 s (9.2-11.9) 56 Inr 0.97 56, 61 Laboratory test 12/31/2014 Vag/Cerv Culture ok 62, 63 finding Laboratory test 12/31/2014 CA 125 9.8 U/ml 0.0-35.0 64, 65 finding Laboratory test 12/31/2014 Thin [facility] 66 finding <SEE NOTE> Laboratory test 12/31/2014 Histology [facility] 67 finding <SEE NOTE> Basic Metabolic 12/18/2014 Glucose 103 mg/dL 74-106 Panel BUN 9 mg/dL 7-18 Creatinine 0.9 mg/dL 0.6-1.3 Glom Filtration Rate, Estimate >60 mL/min >60 If >60 mL/min >60 68 BUN/Creat 10.0 ratio Sodium 140 mmol/L 136-145 Potassium 3.9 mmol/L 3.5-5.1 Chloride 105 mmol/L 98-107 Carbon Dioxide 27 mmol/L 21-32 Anion Gap 12 mEq/L 8-16 Calcium 9.4 mg/dL 8.5-10.1 LDL Cholesterol Profile 12/18/2014 Cholesterol 179 mg/dL < 200 69 Triglycerides 194 mg/dL < 150 70 HDL Cholesterol 38 mg/dL > 40 71 LDL-Cholesterol 102 mg/dL < 100 72 Laboratory test finding 12/18/2014 Sgot/Ast 22 U/L 15-37 SGPT/Alt 43 U/L 12-78 Affirm 12/12/2014 Trichomonas Vaginalis Negative Negative Gardnerella Vaginalis Negative Negative Yamilex Species Negative Negative Laboratory test finding 06/16/2014 Anion Gap 11 mEq/L 8-16 BUN 14 mg/dL 5-23 BUN/Creat 20.0 ratio Calcium 9.1 mg/dL 8.5-10.1 Carbon Dioxide 26 mEq/L 18-29 Chloride 109 mmol/L High 98-107 Creatinine 0.7 mg/dL 0.5-1.4 Glom Filtration Rate, Estimate >60 mL/min >60 Glucose 101 mg/dL 76-115 If >60 mL/min >60 73 Potassium 4.1 mmol/L 3.5-5.1 SGPT/Alt 38 U/L 30-65 Sgot/Ast 15 U/L Low 16-40 Sodium 142 mmol/L 136-145 LDL Cholesterol Profile 06/16/2014 Cholesterol 176 mg/dL 120-200 HDL Cholesterol 37 mg/dL 29-83 LDL-Cholesterol 99 mg/dL 62-185 Triglycerides 198 mg/dL 16-231 Laboratory test finding 05/28/2014 Yamilex species Negative [Negative] Gardnerella vaginalis Negative [Negative] Trichomonas vaginalis Negative [Negative] Laboratory test finding 01/15/2014 Anion Gap 8 mEq/L 8-16 BUN 14 mg/dL 5-23 BUN/Creat 20.0 ratio Calcium 9.3 mg/dL 8.5-10.1 Carbon Dioxide 31 mEq/L High 18-29 Chloride 105 mmol/L 98-107 Creatinine 0.7 mg/dL 0.5-1.4 Glom Filtration Rate, Estimate >60 mL/min >60 Glucose 93 mg/dL 76-115 Glycohemoglobin (A1c) 6.0 % 4.8-6.0 74 If >60 mL/min >60 75 Potassium 4.0 mmol/L 3.5-5.1 SGPT/Alt 44 U/L 30-65 Sgot/Ast 20 U/L 16-40 Sodium 140 mmol/L 136-145 eAG 126 mg/dL LDL Cholesterol Profile 01/15/2014 Cholesterol 189 mg/dL 120-200 HDL Cholesterol 44 mg/dL 29-83 LDL-Cholesterol 107 mg/dL 62-185 Triglycerides 190 mg/dL 16-231 Laboratory test finding 07/11/2013 Anion Gap 11 mEq/L 8-16 BUN 13 mg/dL 5-23 BUN/Creat 16.2 ratio Calcium 9.1 mg/dL 8.5-10.1 Carbon Dioxide 30 mEq/L High 18-29 Chloride 105 mmol/L 98-107 Creatinine 0.8 mg/dL 0.5-1.4 Glom Filtration Rate, Estimate >60 mL/min >60 Glucose 96 mg/dL 76-115 Glycohemoglobin (A1c) 5.7 % 4.8-6.0 76 If >60 mL/min >60 77 Potassium 3.9 mmol/L 3.5-5.1 SGPT/Alt 38 U/L 30-65 Sgot/Ast 22 U/L 16-40 Sodium 142 mmol/L 136-145 eAG 117 mg/dL LDL Cholesterol Profile 07/11/2013 Cholesterol 191 mg/dL 120-200 HDL Cholesterol 38 mg/dL 29-83 LDL-Cholesterol 113 mg/dL 62-185 Triglycerides 200 mg/dL 16-231 Laboratory test finding 06/24/2013 Yamilex species See Note 78 Gardnerella vaginalis See Note 79 Genital Culture See Note 80 Gram Stain See Note 81 Trichomonas vaginalis See Note 82 Laboratory test finding 06/21/2013 Culture Urine See Note 83 Laboratory test finding 01/08/2013 Alb/Glob 1.3 ratio Albumin 4.0 g/dL 3.5-5.0 Alkaline Phosphatase 97 U/L 50-136 Anion Gap 13 mEq/L 8-16 BUN 13 mg/dL 5-23 BUN/Creat 16.2 ratio Bas% 0.9 % 0.0-1.1 Baso # 0.05 K/uL 0.0-0.1 Bilirubin,Total 0.4 mg/dL 0.2-1.2 Calcium 9.2 mg/dL 8.5-10.1 Carbon Dioxide 31 mEq/L High 18-29 Chloride 102 mmol/L 98-107 Comprehensive Metabolic Panel See Note 84 Creatinine 0.8 mg/dL 0.5-1.4 Eo% 2.5 % 0.0-6.6 Eos # 0.13 K/uL 0.0-0.5 Globulin 3.0 g/dL 1.9-4.3 Glom Filtration Rate, Estimate >60 mL/min >60 Glucose 107 mg/dL 76-115 Hematocrit 44.7 % 36.0-46.1 Hemoglobin 15.1 gm/dL 11.6-15.8 If >60 mL/min >60 85 Lymph # 1.65 K/uL 0.8-3.4 Lymph % 31.3 % 17.0-46.1 Mean Cell Volume 88.7 fl 80.9-99.0 Mean Corpuscular HGB 30.0 pg 25.9-32.7 Mean Corpuscular HGB Conc 33.8 g/dL 30.8-34.3 Mean Platelet Volume 11.5 fL 8.9-12.4 [place] # 0.49 K/uL 0.3-0.9 [place] % 9.3 % 4.3-13.2 Neut# 2.95 K/uL 1.0-7.0 Neut% 56.0 % 40.4-72.8 Platelet Count 227 K/uL 155-360 Potassium 3.9 mmol/L 3.5-5.1 Red Blood Count 5.04 M/uL 3.90-5.40 Red Cell Distri Width %CV 13.6 % 11.7-14.4 Red Cell Distri Width SD 43.5 fl 3-47 SGPT/Alt 38 U/L 30-65 Sgot/Ast 16 U/L 16-40 Sodium 142 mmol/L 136-145 Total Protein 7.0 g/dL 6.3-8.0 White Blood Count 5.3 K/uL 3.1-10.7 LDL Cholesterol Profile 01/08/2013 Cholesterol 186 mg/dL 120-200 HDL Cholesterol 38 mg/dL 29-83 LDL-Cholesterol 109 mg/dL 62-185 Triglycerides 193 mg/dL 16-231 Laboratory test finding 08/16/2012 Anion Gap 12 BUN 13 BUN/Creat 16.2 Bas% 0.7 Baso # 0.04 Calcium 9.0 Carbon Dioxide 28 Chloride 104 Creatinine 0.8 Eo% 1.9 Eos # 0.11 Glom Filtration Rate, Estimate >60 Glucose 99 Hematocrit 44.2 Hemoglobin 14.9 If >60 86 Lymph # 1.65 Lymph % 28.8 Mean Cell Volume 90.0 Mean Corpuscular HGB 30.3 Mean Corpuscular HGB Conc 33.7 Mean Platelet Volume 11.8 [place] # 0.45 [place] % 7.9 Neut# 3.47 Neut% 60.7 Platelet Count 215 Potassium 3.9 Red Blood Count 4.91 Red Cell Distri Width %CV 13.3 Red Cell Distri Width SD 42.8 SGPT/Alt 49 Sgot/Ast 22 Sodium 140 White Blood Count 5.7 LDL Cholesterol Profile 08/16/2012 Cholesterol 169 HDL Cholesterol 36 LDL-Cholesterol 99 Triglycerides 171 Laboratory test finding 03/23/2012 Absolute Basophils 0.077 K/ul 0.0-0.3 87 Absolute Eosinophils 0.126 K/ul 0.0-0.5 87 Absolute Lymphocytes 1.51 K/ul 0.8-4.8 87 Absolute Monocytes 0.475 K/ul 0.1-1.0 87 Absolute Neutrophils 2.86 K/ul 2.05-7.63 87 Alt 52 U/L 9-52 87 Anion Gap 17 mmol/L 10-20 87 Ast 37 U/L High 14-36 87 BUN 15 mg/dL 7-18 87 BUN/CR Ratio 21.6 Ratio High 12-20 87 Basophil 1.5 % 0-2 87 Calcium 9.3 mg/dL 8.7-10.5 87 Carbon Dioxide 25 mmol/L 22-30 87 Chloride 103 mmol/L 98-107 87 Creatinine, Serum 0.7 mg/dL 0.7-1.2 87 Eosinophil 2.5 % 0-4 87 Esr (Sed Rate/Westergren) 10 SEC 0-25 87 Glucose 100 mg/dL 65-105 87 Hematocrit 47.5 % 37.0-51.0 87 Hemoglobin 15.4 GM/dl 12.0-16.0 87 Lymphocytes 29.9 % 20-44 87 MCH 29.3 pg 26.0-32.0 87 MCHC 32.5 g/dL 31.0-36.0 87 MCV 90 FL 80-97 87 Monocytes 9.4 % 2-10.0 87 Neutrophils 56.6 % 50-70 87 Platelet Count 223 K/ul 140-440 87 Potassium 4.4 mmol/L 3.6-5.0 87 RBC 5.26 M/ul 4.2-6.3 87 RDW 11.9 % 11.5-14.5 87 Sodium 141 mmol/L 137-145 87 WBC 5.0 K/ul 4.1-10.9 87 Lipid Panel 03/23/2012 Chol/HDL Ratio 4.5 87, 88 Cholesterol 176 mg/dL 50-199 87 HDL Cholesterol 39 mg/dL 29-86 87 LDL 101 mg/dL 20-129 87 Triglycerides 181 mg/dL 30-249 87 VLDL Cholesterol 36 mg/dL 87 Laboratory test finding 09/23/2011 Alt 38 U/L 9-52 87 Anion Gap 11 mmol/L 10-20 87 Ast 26 U/L 14-36 87 BUN 13 mg/dL 7-18 87 BUN/CR Ratio 18.5 Ratio 12-20 87 Calcium 9.3 mg/dL 8.7-10.5 87 Carbon Dioxide 30 mmol/L 22-30 87 Chloride 104 mmol/L 98-107 87 Creatinine, Serum 0.7 mg/dL 0.7-1.2 87 Glucose 104 mg/dL 65-105 87 Potassium 3.9 mmol/L 3.6-5.0 87 Sodium 141 mmol/L 137-145 87 Lipid Panel 09/23/2011 Chol/HDL Ratio 4.9 87, 89 Cholesterol 184 mg/dL 50-199 87 HDL Cholesterol 37 mg/dL 29-86 87 LDL 103 mg/dL 20-129 87 Triglycerides 220 mg/dL 30-249 87 VLDL Cholesterol 44 mg/dL 87 Laboratory test finding 02/28/2011 Cytology Pap See Note 90 Laboratory test finding 02/21/2011 Anion Gap 13 mEq/L 8-16 BUN 16 mg/dL 5-23 BUN/Creat 20.0 Calcium 8.9 mg/dL 8.5-10.1 Carbon Dioxide 29 mEq/L 21-32 Chloride 100 mEq/L 98-107 Creatinine 0.8 mg/dL 0.5-1.4 Glom Filtration Rate, Estimate >60 mL/min >60 Glucose 98 mg/dL 76-115 If >60 mL/min >60 91 Potassium 3.9 mEq/L 3.5-5.1 SGPT/Alt 40 U/L 30-65 92 Sgot/Ast 16 U/L 16-40 93 Sodium 138 mEq/L 136-145 LDL Cholesterol Profile 02/21/2011 Cholesterol 178 mg/dL 120-200 HDL Cholesterol 43 mg/dL 32-96 LDL-Cholesterol 112 mg/dL 62-185 Triglycerides 114 mg/dL 0-210 Laboratory test finding 08/19/2010 Anion Gap 13 mEq/L 8-16 BUN 13 mg/dL 5-23 BUN/Creat 18.5 Calcium 9.1 mg/dL 8.5-10.1 Carbon Dioxide 31 mEq/L 21-32 Chloride 104 mEq/L 98-107 Creatinine 0.7 mg/dL 0.5-1.4 Glom Filtration Rate, Estimate >60 mL/min >60 Glucose 91 mg/dL 76-115 If >60 mL/min >60 94 Potassium 4.1 mEq/L 3.5-5.1 SGPT/Alt 42 U/L 30-65 95 Sgot/Ast 17 U/L 16-40 96 Sodium 144 mEq/L 136-145 LDL Cholesterol Profile 08/19/2010 Cholesterol 204 mg/dL High 120-200 HDL Cholesterol 47 mg/dL 32-96 LDL-Cholesterol 125 mg/dL 62-185 Triglycerides 162 mg/dL 0-210 Laboratory test finding 02/18/2010 Anion Gap 10 mEq/L 8-16 BUN 13 mg/dL 5-23 BUN/Creat 18.5 Calcium 8.6 mg/dL 8.5-10.1 Carbon Dioxide 30 mEq/L 21-32 Chloride 104 mEq/L 98-107 Creatinine 0.7 mg/dL 0.5-1.4 Glom Filtration Rate, Estimate >60 mL/min >60 Glucose 100 mg/dL 76-115 If >60 mL/min >60 97 Potassium 4.1 mEq/L 3.5-5.1 SGPT/Alt 47 U/L 30-65 Sgot/Ast 15 U/L Low 16-40 Sodium 140 mEq/L 136-145 LDL Cholesterol Profile 02/18/2010 Cholesterol 204 mg/dL High 120-200 HDL Cholesterol 44 mg/dL 32-96 LDL-Cholesterol 125 mg/dL 62-185 Triglycerides 177 mg/dL 0-210 Laboratory test finding 08/20/2009 Anion Gap 14 mEq/L 8-16 BUN 12 mg/dL 5-23 BUN/Creat 15.0 Calcium 8.8 mg/dL 8.5-10.1 Carbon Dioxide 25 mEq/L 21-32 Chloride 106 mEq/L 98-107 Creatinine 0.8 mg/dL 0.5-1.4 Glom Filtration Rate, Estimate >60 mL/min >60 Glucose 96 mg/dL 76-115 If >60 mL/min >60 98 Potassium 4.0 mEq/L 3.5-5.1 SGPT/Alt 41 U/L 30-65 Sgot/Ast 18 U/L 16-40 Sodium 141 mEq/L 136-145 LDL Cholesterol Profile 08/20/2009 Cholesterol 188 mg/dL 120-200 HDL Cholesterol 41 mg/dL 32-96 LDL-Cholesterol 111 mg/dL 62-185 Triglycerides 181 mg/dL 0-210 Laboratory test finding 02/16/2009 Anion Gap 11 mEq/L 8-16 BUN 16 mg/dL 5-23 BUN/Creat 20.0 Calcium 9.1 mg/dL 8.5-10.1 Carbon Dioxide 29 mEq/L 21-32 Chloride 104 mEq/L 98-107 Creatinine 0.8 mg/dL 0.5-1.4 Glom Filtration Rate, Estimate >60 mL/min >60 Glucose 95 mg/dL 76-115 If >60 mL/min >60 99 Potassium 4.2 mEq/L 3.5-5.1 SGPT/Alt 41 U/L 30-65 Sgot/Ast 15 U/L Low 16-40 Sodium 140 mEq/L 136-145 LDL Cholesterol Profile 02/16/2009 Cholesterol 202 mg/dL High 120-200 HDL Cholesterol 49 mg/dL 32-96 LDL-Cholesterol 118 mg/dL 62-185 Triglycerides 177 mg/dL 0-210 LDL Cholesterol Profile 10/07/2008 Cholesterol 160 mg/dL 120-200 HDL Cholesterol 44 mg/dL 32-96 LDL-Cholesterol 92 mg/dL 62-185 Triglycerides 119 mg/dL 0-210 Laboratory test finding 10/07/2008 Anion Gap 11 mEq/L 8-16 BUN 10 mg/dL 5-23 BUN/Creat 16.6 Calcium 9.1 mg/dL 8.5-10.1 Carbon Dioxide 30 mEq/L 21-32 Chloride 106 mEq/L 98-107 Creatinine 0.6 mg/dL 0.5-1.4 Glom Filtration Rate, Estimate >60 mL/min >60 Glucose 95 mg/dL 76-115 If >60 mL/min >60 100 Potassium 4.0 mEq/L 3.5-5.1 SGPT/Alt 57 U/L 30-65 Sgot/Ast 23 U/L 16-40 Sodium 143 mEq/L 136-145 LDL Cholesterol Profile 04/04/2008 Cholesterol 172 mg/dL 120-200 HDL Cholesterol 51 mg/dL 32-96 LDL-Cholesterol 103 mg/dL 62-185 Triglycerides 89 mg/dL 0-210 Laboratory test finding 04/04/2008 Anion Gap 14 mEq/L 8-16 BUN 13 mg/dL 5-23 BUN/Creat 18.5 Calcium 9.4 mg/dL 8.5-10.1 Carbon Dioxide 31 mEq/L 21-32 Chloride 105 mEq/L 98-107 Creatinine 0.7 mg/dL 0.5-1.4 Glucose 90 mg/dL 76-115 Potassium 4.2 mEq/L 3.5-5.1 SGPT/Alt 48 U/L 30-65 Sgot/Ast 17 U/L 16-40 Sodium 146 mEq/L High 136-145 Laboratory test finding 02/20/2008 Stool Occult #1 Negative Stool Occult #2 Negative Stool Occult #3 Negative Laboratory test finding 12/17/2007 Cytology Pap See Note 101 HPV See Note 102 LDL Cholesterol Profile 12/11/2007 Cholesterol 180 mg/dL 120-200 HDL Cholesterol 46 mg/dL 32-96 LDL-Cholesterol 107 mg/dL 62-185 Triglycerides 137 mg/dL 0-210 Laboratory test finding 12/11/2007 SGPT/Alt 44 U/L 30-65 Sgot/Ast 18 U/L 16-40 Lipid Panel 10/12/2007 Chol/HDL Ratio 5.4 87, 103 Cholesterol 251 mg/dL High 50-199 87 HDL Cholesterol 46 mg/dL 29-86 87 LDL 178 mg/dL High 20-129 87 Triglycerides 133 mg/dL 30-249 87 VLDL Cholesterol 27 mg/dL 87 Laboratory test finding 10/12/2007 Alt 38 U/L 9-52 87 Anion Gap 13 mmol/L 10-20 87 Ast 27 U/L 14-36 87 BUN 14 mg/dL 7-18 87 BUN/CR Ratio 19.3 Ratio 12-20 87 Calcium 9.8 mg/dL 8.7-10.5 87 Carbon Dioxide 28 mmol/L 22-30 87 Chloride 102 mmol/L 98-107 87 Creatinine, Serum 0.7 mg/dL 0.7-1.2 87 Glucose 86 mg/dL 65-105 87 Potassium 3.6 mmol/L 3.6-5.0 87 Sodium 140 mmol/L 137-145 87 LDL Cholesterol Profile 03/13/2007 Cholesterol 230 mg/dL High 120-200 HDL Cholesterol 38 mg/dL 32-96 LDL-Cholesterol 169 mg/dL 62-185 Triglycerides 116 mg/dL 0-210 Laboratory test finding 03/13/2007 SGPT/Alt 50 U/L 30-65 Sgot/Ast 19 U/L 16-40 Laboratory test finding 12/26/2006 Anion Gap 14 mEq/L 8-16 BUN 16 mg/dL 5-23 BUN/Creat 17.7 Calcium 9.3 mg/dL 8.5-10.1 Carbon Dioxide 28 mEq/L 21-32 Chloride 105 mEq/L 98-107 Creatinine 0.9 mg/dL 0.5-1.4 Glucose 95 mg/dL 76-115 Hematocrit 47.1 % High 34.0-46.0 Hemoglobin 16.1 gm/dL High 11.5-15.5 Mean Cell Volume 89.6 fL 80.0-96.0 Mean Corpuscular HGB 30.6 pg 27.0-33.0 Mean Corpuscular HGB Conc 34.1 g/dL 31.7-36.0 Mean Platelet Volume 7.2 fl 6.6-10.6 Platelet Count 225 K/uL 150-400 Potassium 4.2 mEq/L 3.5-5.1 Red Blood Count 5.25 M/uL High 3.90-5.20 Red Cell Distri Width %CV 14.0 % 11.6-15.8 Sodium 143 mEq/L 136-145 White Blood Count 5.0 K/uL 3.4-10.5 LDL Cholesterol Profile 12/26/2006 Cholesterol 265 mg/dL High 120-200 HDL Cholesterol 40 mg/dL 32-96 LDL-Cholesterol 193 mg/dL High 62-185 Triglycerides 160 mg/dL 0-210 Laboratory test finding 11/28/2006 Cytology Pap See Note 104 HPV See Note 105 1 before visit 05/2018 2 Per NCEP ATP III Guidelines: Results lower than 40 mg/dL are suggestive of increased risk for coronary artery disease. Results > or=to 60 mg/dL are considered a negative risk factor. 3 Per NCEP ATP III Guidelines: Normal Population <130 Patients with medical conditions: CHD/DM Optimal: <100 Borderline high: 130-159 High: 160-189 Very high: >189 4 Updated reference range on new analyzer 5 Updated reference range on new analyzer 6 Concerning GFR Guidelines for Americans: Normal function or mild renal disease, if clinically at risk: >/=60 mL/min Moderately decreased: 30-59 Severely decreased: 15-29 Renal failure: <15 7 Concerning GFR Guidelines: Normal function or mild renal disease, if clinically at risk: >/=60 mL/min Moderately decreased: 30-59 Severely decreased: 15-29 Renal failure: <15 Glomerular Filtration Rate (GFR) is estimated based on the MDRD equation, which assumes a steady state for creatinine as recommended by the National Kidney Disease Education Program in conjunction with the National Institutes of Health and the National Kidney Foundation. Clinical conditions in which it may be necessary to measure GFR by using clearance methods include extremes of age and body size, severe malnutrition or obesity, diseases of skeletal muscle, paraplegia or quadriplegia, vegetarian diet, rapidly changing kidney function, and calculation of the dose of potentially toxic drugs that are excreted by the kidneys. 8 Updated Reference Range 9 before visit 11/2017 10 Updated reference range on new analyzer 11 Updated reference range on new analyzer 12 Concerning GFR Guidelines for Americans: Normal function or mild renal disease, if clinically at risk: >/=60 mL/min Moderately decreased: 30-59 Severely decreased: 15-29 Renal failure: <15 13 Concerning GFR Guidelines: Normal function or mild renal disease, if clinically at risk: >/=60 mL/min Moderately decreased: 30-59 Severely decreased: 15-29 Renal failure: <15 Glomerular Filtration Rate (GFR) is estimated based on the MDRD equation, which assumes a steady state for creatinine as recommended by the National Kidney Disease Education Program in conjunction with the National Institutes of Health and the National Kidney Foundation. Clinical conditions in which it may be necessary to measure GFR by using clearance methods include extremes of age and body size, severe malnutrition or obesity, diseases of skeletal muscle, paraplegia or quadriplegia, vegetarian diet, rapidly changing kidney function, and calculation of the dose of potentially toxic drugs that are excreted by the kidneys. 14 Updated reference range on new analyzer 15 Per NCEP ATP III Guidelines: Results lower than 40 mg/dL are suggestive of increased risk for coronary artery disease. Results > or=to 60 mg/dL are considered a negative risk factor. 16 Per NCEP ATP III Guidelines: Normal Population <130 Patients with medical conditions: CHD/DM Optimal: <100 Borderline high: 130-159 High: 160-189 Very high: >189 17 Unable to calculate ratio. Microalbumin <7.0 18 per pt no medicare part b, has [employer] , cards given 19 Reference Guidelines*: Desirable: ........... < 200 mg/dL Borderline High: ..... 200-239 mg/dL High: ................ >=240 mg/dL * The National Cholesterol Education Program (NCEP) 20 Reference Guidelines*: Normal: ............. < 150 mg/dL Borderline High: .... 150-199 mg/dL High: ............... 200-499 mg/dL Very High: .......... > 500 mg/dL * Source: National Cholesterol Education Program (NCEP) 21 Reference Guidelines*: Low HDL: ..... < 40 mg/dL Normal: ..... 40-60 mg/dL Desirable: ... > 60 mg/dL *The National Cholesterol Education Program(NCEP) 22 Reference Guidelines*: Optimal:........... <100 mg/dL Near Optimal....... 100-129 mg/dL Borderline High.... 130-159 mg/dL High............... 160-189 mg/dL Very High.......... >=190 mg/dL * Source: National Cholesterol Education Program (NCEP) 23 Note: Persistent reduction for 3 months or more in an eGFR <60 mL/min/1.73 m2 defines CKD. Patients with eGFR values >/=60 mL/min/1.73 m2 may also have CKD if evidence of persistent proteinuria is present. The original MDRD equation for estimated GFR is not valid for patients less than 18 years of age. Additional information may be found at [email or web address]. 24 Values below the stated reference ranges of AST and ALT can be seen in normal populations. Clinical correlation is suggested. 25 fastig before visit 05/2017 Fastin hours fastig before visit 05/2017 Fastin hours fastig before visit 05/2017 Fastin hours fastig before visit 2016 Fastin hours 26 Concerning GFR Guidelines for Americans: Normal function or mild renal disease, if clinically at risk: >/=60 mL/min Moderately decreased: 30-59 Severely decreased: 15-29 Renal failure: <15 27 Concerning GFR Guidelines: Normal function or mild renal disease, if clinically at risk: >/=60 mL/min Moderately decreased: 30-59 Severely decreased: 15-29 Renal failure: <15 Glomerular Filtration Rate (GFR) is estimated based on the MDRD equation, which assumes a steady state for creatinine as recommended by the National Kidney Disease Education Program in conjunction with the National Institutes of Health and the National Kidney Foundation. Clinical conditions in which it may be necessary to measure GFR by using clearance methods include extremes of age and body size, severe malnutrition or obesity, diseases of skeletal muscle, paraplegia or quadriplegia, vegetarian diet, rapidly changing kidney function, and calculation of the dose of potentially toxic drugs that are excreted by the kidneys. 28 Per NCEP ATP III Guidelines: Results lower than 40 mg/dL are suggestive of increased risk for coronary artery disease. Results > or=to 60 mg/dL are considered a negative risk factor. 29 Per NCEP ATP III Guidelines: Normal Population <130 Patients with medical conditions: CHD/DM Optimal: <100 Borderline high: 130-159 High: 160-189 Very high: >189 30 I10 31 Note: Persistent reduction for 3 months or more in an eGFR <60 mL/min/1.73 m2 defines CKD. Patients with eGFR values >/=60 mL/min/1.73 m2 may also have CKD if evidence of persistent proteinuria is present. The original MDRD equation for estimated GFR is not valid for patients less than 18 years of age. Additional information may be found at [email or web address]. 32 Concerning GFR Guidelines: Normal function or mild renal disease, if clinically at risk: >/=60 mL/min Moderately decreased: 30-59 Severely decreased: 15-29 Renal failure: <15 Glomerular Filtration Rate (GFR) is estimated based on the MDRD equation, which assumes a steady state for creatinine as recommended by the National Kidney Disease Education Program in conjunction with the National Institutes of Health and the National Kidney Foundation. Clinical conditions in which it may be necessary to measure GFR by using clearance methods include extremes of age and body size, severe malnutrition or obesity, diseases of skeletal muscle, paraplegia or quadriplegia, vegetarian diet, rapidly changing kidney function, and calculation of the dose of potentially toxic drugs that are excreted by the kidneys. 33 Concerning GFR Guidelines for Americans: Normal function or mild renal disease, if clinically at risk: >/=60 mL/min Moderately decreased: 30-59 Severely decreased: 15-29 Renal failure: <15 34 THERAPEUTIC INR RANGE: 2.0 - 3.0 DVT, Pulmonary embolus, prophylaxis against venous thrombosis or systemic embolization in high risk patients. 2.5 - 3.5 Mechanical heart valves 35 Is patient on heparin protocol? <Blank> Is patient on anticoagulants? <Blank> 36 Unless otherwise specified, testing performed by [facility] [employer] [address] [place] [id number] 37 6 months 38 Concerning GFR Guidelines: Normal function or mild renal disease, if clinically at risk: >/=60 mL/min Moderately decreased: 30-59 Severely decreased: 15-29 Renal failure: <15 Glomerular Filtration Rate (GFR) is estimated based on the MDRD equation, which assumes a steady state for creatinine as recommended by the National Kidney Disease Education Program in conjunction with the National Institutes of Health and the National Kidney Foundation. Clinical conditions in which it may be necessary to measure GFR by using clearance methods include extremes of age and body size, severe malnutrition or obesity, diseases of skeletal muscle, paraplegia or quadriplegia, vegetarian diet, rapidly changing kidney function, and calculation of the dose of potentially toxic drugs that are excreted by the kidneys. 39 Concerning GFR Guidelines for Americans: Normal function or mild renal disease, if clinically at risk: >/=60 mL/min Moderately decreased: 30-59 Severely decreased: 15-29 Renal failure: <15 40 Per NCEP ATP III Guidelines: Results lower than 40 mg/dL are suggestive of increased risk for coronary artery disease. Results > or=to 60 mg/dL are considered a negative risk factor. 41 Per NCEP ATP III Guidelines: Normal Population <130 Patients with medical conditions: CHD/DM Optimal: <100 Borderline high: 130-159 High: 160-189 Very high: >189 42 QUERY: Is the Patient Fasting? Y 43 Note: Persistent reduction for 3 months or more in an eGFR <60 mL/min/1.73 m2 defines CKD. Patients with eGFR values >/=60 mL/min/1.73 m2 may also have CKD if evidence of persistent proteinuria is present. The original MDRD equation for estimated GFR is not valid for patients less than 18 years of age. Additional information may be found at [email or web address]. 44 Reference Guidelines*: Desirable: ........... < 200 mg/dL Borderline High: ..... 200-239 mg/dL High: ................ >=240 mg/dL * The National Cholesterol Education Program (NCEP) 45 Reference Guidelines*: Normal: ............. < 150 mg/dL Borderline High: .... 150-199 mg/dL High: ............... 200-499 mg/dL Very High: .......... > 500 mg/dL * Source: National Cholesterol Education Program (NCEP) 46 Reference Guidelines*: Low HDL: ..... < 40 mg/dL Normal: ..... 40-60 mg/dL Desirable: ... > 60 mg/dL *The National Cholesterol Education Program(NCEP) 47 Reference Guidelines*: Optimal:........... <100 mg/dL Near Optimal....... 100-129 mg/dL Borderline High.... 130-159 mg/dL High............... 160-189 mg/dL Very High.......... >=190 mg/dL * Source: National Cholesterol Education Program (NCEP) 48 0.0 - 0.045 ng/mL: Normal 0.046 - 0.5 ng/mL: Suggestive 0.6 - 1.5 ng/mL: Consistent 49 Note: Persistent reduction for 3 months or more in an eGFR <60 mL/min/1.73 m2 defines CKD. Patients with eGFR values >/=60 mL/min/1.73 m2 may also have CKD if evidence of persistent proteinuria is present. The original MDRD equation for estimated GFR is not valid for patients less than 18 years of age. Additional information may be found at [email or web address]. 50 0.0 - 0.045 ng/mL: Normal 0.046 - 0.5 ng/mL: Suggestive 0.6 - 1.5 ng/mL: Consistent 51 Note: Persistent reduction for 3 months or more in an eGFR <60 mL/min/1.73 m2 defines CKD. Patients with eGFR values >/=60 mL/min/1.73 m2 may also have CKD if evidence of persistent proteinuria is present. The original MDRD equation for estimated GFR is not valid for patients less than 18 years of age. Additional information may be found at [email or web address]. 52 Reference Guidelines*: Desirable: ........... < 200 mg/dL Borderline High: ..... 200-239 mg/dL High: ................ >=240 mg/dL * The National Cholesterol Education Program (NCEP) 53 Reference Guidelines*: Normal: ............. < 150 mg/dL Borderline High: .... 150-199 mg/dL High: ............... 200-499 mg/dL Very High: .......... > 500 mg/dL * Source: National Cholesterol Education Program (NCEP) 54 Reference Guidelines*: Low HDL: ..... < 40 mg/dL Normal: ..... 40-60 mg/dL Desirable: ... > 60 mg/dL *The National Cholesterol Education Program(NCEP) 55 Reference Guidelines*: Optimal:........... <100 mg/dL Near Optimal....... 100-129 mg/dL Borderline High.... 130-159 mg/dL High............... 160-189 mg/dL Very High.......... >=190 mg/dL * Source: National Cholesterol Education Program (NCEP) 56 CC: Dr Dahl 57 23 Electrolytes confirmed by repeat. 58 Concerning GFR Guidelines: Normal function or mild renal disease, if clinically at risk: >/=60 mL/min Moderately decreased: 30-59 Severely decreased: 15-29 Renal failure: <15 Glomerular Filtration Rate (GFR) is estimated based on the MDRD equation, which assumes a steady state for creatinine as recommended by the National Kidney Disease Education Program in conjunction with the National Institutes of Health and the National Kidney Foundation. Clinical conditions in which it may be necessary to measure GFR by using clearance methods include extremes of age and body size, severe malnutrition or obesity, diseases of skeletal muscle, paraplegia or quadriplegia, vegetarian diet, rapidly changing kidney function, and calculation of the dose of potentially toxic drugs that are excreted by the kidneys. 59 Concerning GFR Guidelines for Americans: Normal function or mild renal disease, if clinically at risk: >/=60 mL/min Moderately decreased: 30-59 Severely decreased: 15-29 Renal failure: <15 60 Unless otherwise specified, testing performed by [employer] [email or web address] [address] 61 SUGGESTED THERAPEUTIC RANGES USING INR FOR STABILIZED ANTICOAGULATED PATIENTS: STANDARD DOSE THERAPY INR 2.0-3.0 DVT, PE, PREVENT DVT OR EMBOLISM HIGH DOSE THERAPY INR 2.5-3.5 PREVENT EMBOLISM FROM MECHANICAL HEART VALVE Unless otherwise specified, testing performed by [employer] [address] [place] [id number] 62 Fastin hours 63 SPECIMEN DESCRIPTION VAGINAL SPECIMEN GROUP B STREP CULT. NEGATIVE: BETA HEMOLYTIC STREPTOCOCCI GROUP B B Y PCR CULTURE RESULTS NORMAL VAGINAL JESSICA NO NEISSERIA GONORRHOEAE ISOLATED REPORT STATUS FINAL 01/02/2015 Unless otherwise specified, testing performed by [employer] [address] [place] [id number] 64 today letter Fastin hours 65 Beginning 01/08/07 CA125 values assayed at [facility] uses an EIA methodology manufactured by [employer] for use on the DXI analyzer. Values obtained with different assay methods or kits can not be used interchangeably. Serum CA125 measurement is not an absolute test for malignancy. The CA125 value should be used in conjunction with information available from clinical evaluation and other diagnostic procedures. 66 [employer] [address] [place] [id number] GYNECOLOGIC CYTOLOGY REPORT Accession Number: [id number] Source of Specimen(s): A: Thin Prep Cervical / Endocervical Pap Smear - One Vial Clinical Diagnosis and History: Date of Last Menstrual Period: 10 yrs ago Menstrual History: Post-menopausal Other Clinical Conditions: Last Pap Smear: 02/21 Clear Path normal REFLEX TO HPV ASSAY IF RESULTS OF THIS PAP ARE ASCUS Specimen Adequacy Satisfactory for evaluation Presence of endocervical/transformation zone component General Categorization Negative for intraepithelial lesion or malignancy Interpretation NEGATIVE FOR INTRAEPITHELIAL LESION OR MALIGNANCY Atrophy with inflammation (atrophic vaginitis) Reported: 01/02/2015 Electronically Signed Out By Francesca Cox CT(ASCP) Diabetes Specialist: Nohemi Webster SCT(ASCP)([facility]) [facility], Yousuf hardy QC Reviewed: [address] [id number] Surgical Pathology Report Specimen(s) Received A: Endometrial biopsy Clinical Diagnosis and History Endometrial biopsy by [facility], postmenopausal bleeding 64 year old, Pap done Gross Description Specimen received in formalin labeled with the patient's name is a 1.0 cc aggregate of hemorrhagic mucoid material containing scant fragments of german billy tissue and which is entirely submitted in one cassette. paw mls/jbs Diagnosis DESIGNATED ENDOMETRIAL BIOPSY: Endocervical tissue with acutely and chronically inflamed squamous metaplasia. Scant lower uterine segment. No definite endometrial cavity tissue is seen on multiple levels examined. Recommend clinical correlation, with possible submission of additional material, as clinically indicated. Technical component processed at [facility], Histopathology, [address] [place] [address], [facility]. Diagnosis and reporting performed at [facility], [address] [place] [address]. Reported: 01/05/2015 10:09 Electronically Signed Out By Sky Wiggins M.D. paw ICD9 Codes A: V71. 68 Note: Persistent reduction for 3 months or more in an eGFR <60 mL/min/1.73 m2 defines CKD. Patients with eGFR values >/=60 mL/min/1.73 m2 may also have CKD if evidence of persistent proteinuria is present. The original MDRD equation for estimated GFR is not valid for patients less than 18 years of age. Additional information may be found at [email or web address]. 69 Reference Guidelines*: Desirable: ........... < 200 mg/dL Borderline High: ..... 200-239 mg/dL High: ................ >=240 mg/dL * The National Cholesterol Education Program (NCEP) 70 Reference Guidelines*: Normal: ............. < 150 mg/dL Borderline High: .... 150-199 mg/dL High: ............... 200-499 mg/dL Very High: .......... > 500 mg/dL * Source: National Cholesterol Education Program (NCEP) 71 Reference Guidelines*: Low HDL: ..... < 40 mg/dL Normal: ..... 40-60 mg/dL Desirable: ... > 60 mg/dL *The National Cholesterol Education Program(NCEP) 72 Reference Guidelines*: Optimal:........... <100 mg/dL Near Optimal....... 100-129 mg/dL Borderline High.... 130-159 mg/dL High............... 160-189 mg/dL Very High.......... >=190 mg/dL * Source: National Cholesterol Education Program (NCEP) 73 Note: Persistent reduction for 3 months or more in an eGFR <60 mL/min/1.73 m2 defines CKD. Patients with eGFR values >/=60 mL/min/1.73 m2 may also have CKD if evidence of persistent proteinuria is present. The original MDRD equation for estimated GFR is not valid for patients less than 18 years of age. Additional information may be found at [email or web address]. 74 A1c value between 5.7% and 6.4% is considered at increased risk for diabetes. A1c value greater than 6.5 % is considered essentially diagnostic for Type II diabetes. Current guidelines recommend a treatment goal of <7% for diabetic patients. This method will measure glycosylated hemoglobin variants, HbS, HbG , HbH, HbWayne, HbC, HbE, etc. Other hemoglobin- opathies may give incorrect results with this test. 75 Note: Persistent reduction for 3 months or more in an eGFR <60 mL/min/1.73 m2 defines CKD. Patients with eGFR values >/=60 mL/min/1.73 m2 may also have CKD if evidence of persistent proteinuria is present. The original MDRD equation for estimated GFR is not valid for patients less than 18 years of age. Additional information may be found at [email or web address]. 76 A1c value between 5.7% and 6.4% is considered at increased risk for diabetes. A1c value greater than 6.5 % is considered essentially diagnostic for Type II diabetes. Current guidelines recommend a treatment goal of <7% for diabetic patients. This method will measure glycosylated hemoglobin variants, HbS, HbG , HbH, HbWayne, HbC, HbE, etc. Other hemoglobin- opathies may give incorrect results with this test. 77 Note: Persistent reduction for 3 months or more in an eGFR <60 mL/min/1.73 m2 defines CKD. Patients with eGFR values >/=60 mL/min/1.73 m2 may also have CKD if evidence of persistent proteinuria is present. The original MDRD equation for estimated GFR is not valid for patients less than 18 years of age. Additional information may be found at [email or web address]. 78 NEGATIVE FOR YAMILEX SPECIES 79 NEGATIVE FOR GARDNERELLA VAGINALIS 80 GENITAL JESSICA 81 GRAM STAIN ! GRAM STAIN INDETERMINANT FOR BACTERIAL VAGINOSIS ! VERY FEW GR POS. BACILLI SUGGESTIVE OF LACTOBACILLUS ! SP. ! VERY FEW GRAM VARIABLE COCCOBACILLI 82 NEGATIVE FOR TRICHOMONAS VAGINALIS 83 COLONY COUNT ! 10,000 - 20,000 CFU/ml Organism 1 ! MIXED URETHRAL JESSICA 84 01/08/13 LAB.MA BMP, ALT, AST WAS ORDRED 85 Note: Persistent reduction for 3 months or more in an eGFR <60 mL/min/1.73 m2 defines CKD. Patients with eGFR values >/=60 mL/min/1.73 m2 may also have CKD if evidence of persistent proteinuria is present. The original MDRD equation for estimated GFR is not valid for patients less than 18 years of age. Additional information may be found at [email or web address]. 86 Note: Persistent reduction for 3 months or more in an eGFR <60 mL/min/1.73 m2 defines CKD. Patients with eGFR values >/=60 mL/min/1.73 m2 may also have CKD if evidence of persistent proteinuria is present. The original MDRD equation for estimated GFR is not valid for patients less than 18 years of age. Additional information may be found at [email or web address]. 87 FASTING 88 Normal Range: Male: <4.98 Female: <4.45 89 Normal Range: Male: <4.98 Female: <4.45 90 [facility]ology Laboratory [address] [place] [address], [address] [place] [address] CYTOLOGY REPORT Name: Bridgette HarrisonSylvain : 1950 (Age: 60) Sex: F Location: [facility] Soc. Sec. #: [id number] Date Collected: 02/28/2011 Billing #: [id number] Date Received: 02/28/2011 [facility]. Rec. #: [id number] Requisition # [id number] Physician(s ): FARRAH GARCIA Source of Specimen: ENDOCERVICAL/ECTOCERVICAL THIN PREP Clinical Information: Date of Last Menstrual Period: 2001 Menstrual History: Post menopausal Specimen Adequacy: SATISFACTORY FOR EVALUATION. ADEQUATE ENDOCERVICAL/TRANSFORMATION ZONE. General Categorization: NEGATIVE FOR INTRAEPITHELIAL LESION OR MALIGNANCY. mas Electronic Signature Zoe Gaines, CT (ASCP) Reported: 03/08/2011 Also seen by :Arlet Coronado, CHRISTIE (ASCP) [facility] ICD-9 Code(s) V72.31 91 Note: Persistent reduction for 3 months or more in an eGFR <60 mL/min/1.73 m2 defines CKD. Patients with eGFR values >/=60 mL/min/1.73 m2 may also have CKD if evidence of persistent proteinuria is present. The original MDRD equation for estimated GFR is not valid for patients less than 18 years of age. Additional information may be found at [email or web address]. 92 FASTING QUERY: @EMR Pat ID: QUERY: @EMR Req #: 93 FASTING QUERY: @EMR Pat ID: QUERY: @EMR Req #: 94 Note: Persistent reduction for 3 months or more in an eGFR <60 mL/min/1.73 m2 defines CKD. Patients with eGFR values >/=60 mL/min/1.73 m2 may also have CKD if evidence of persistent proteinuria is present. The original MDRD equation for estimated GFR is not valid for patients less than 18 years of age. Additional information may be found at [email or web address]. 95 FASTING QUERY: @EMR Pat ID: QUERY: @EMR Req #: 96 FASTING QUERY: @EMR Pat ID: QUERY: @EMR Req #: 97 Note: Persistent reduction for 3 months or more in an eGFR <60 mL/min/1.73 m2 defines CKD. Patients with eGFR values >/=60 mL/min/1.73 m2 may also have CKD if evidence of persistent proteinuria is present. The original MDRD equation for estimated GFR is not valid for patients less than 18 years of age. Additional information may be found at [email or web address]. 98 Note: Persistent reduction for 3 months or more in an eGFR <60 mL/min/1.73 m2 defines CKD. Patients with eGFR values >/=60 mL/min/1.73 m2 may also have CKD if evidence of persistent proteinuria is present. The original MDRD equation for estimated GFR is not valid for patients less than 18 years of age. Additional information may be found at [email or web address]. 99 Note: Persistent reduction for 3 months or more in an eGFR <60 mL/min/1.73 m2 defines CKD. Patients with eGFR values >/=60 mL/min/1.73 m2 may also have CKD if evidence of persistent proteinuria is present. The original MDRD equation for estimated GFR is not valid for patients less than 18 years of age. Additional information may be found at [email or web address]. 100 Note: Persistent reduction for 3 months or more in an eGFR <60 mL/min/ 1.73 m2 defines CKD. Patients with eGFR values >/=60 mL/min/1.73 m2 may also have CKD if evidence of persistent proteinuria is present. The original MDRD equation for estimated GFR is not valid for patients less than 18 years of age. Additional information may be found at [email or web address]. 101 Cytology [id number] [facility], [address] [place] [address] CYTOLOGY REPORT Name: Bridgette Harrison Accession # : [id number] : 1950 (Age: 57) Sex: F Location: [facility] Soc. Sec. #: [id number] Date Collected: 12/17/2007 Billing #: [id number] Date Received: 12/17/2007 Physician(s): FARRAH GARCIA Source of Specimen: ECTOCERVICAL/ THIN PREP Clinical Information: Date of Last Menstrual Period: None Provided Menstrual History:Post menopausal: 2001 Specimen Adequacy: SATISFACTORY FOR EVALUATION. General Categorization: NEGATIVE FOR INTRAEPITHELIAL LESION OR MALIGNANCY. dcl Electronic Signature CHRISTIE Waterman (ASCP) Reported: 12/19/2007 [facility] ICD-9 Code(s) V72.31 102 Special Testing [id number] [facility] [address] [place] [address] DIGENE HYBRID CAPTURE II HPV TEST Name: Bridgette Harrison : 1950 (Age: 57) Sex: F Location: [facility] Soc. Sec. #: [id number] Date Collected: 12/17/2007 Billing #: [id number] Date Received: 12/17/2007 Physician(s): FARRAH GARCIA Source of Specimen: THIN PREP PAP Other Case Numbers: [id number] Results: Low RiskTEST NOT REQUESTED ON THIS SPECIMEN (HPV types 6, 11, 42, 43, 44) High RiskNEGATIVE ( HPV types 16, 18, 31, 33, 35, 39, 45, 51, 52, 56, 58, 59, 68) Reported: 12/19/2007 Electronic Signature [place], [place] [facility] ICD-9 Codes: A: V72.31 103 Normal Range: Male: <4.98 Female: <4.45 104 Cytology Laboratory [address] [facility] [address] [place] [address] CYTOLOGY REPORT Name: Bridgette Harrison : 1950 (Age: 56) Sex: F Location: [facility] Soc. Sec. #: Date Collected: 11/28/2006 Billing #: [id number] Date Received: 2006 Physician(s): FARRAH GARCIA Source of Specimen: ENDOCERVICAL/ECTOCERVICAL THIN PREP Clinical Information: Date of Last Menstrual Period: None Provided Menstrual History: Post menopausal: 2001 Specimen Adequacy: SATISFACTORY FOR EVALUATION. ADEQUATE ENDOCERVICAL/TRANSFORMATION ZONE. General Categorization: NEGATIVE FOR INTRAEPITHELIAL LESION OR MALIGNANCY. tfn Electronic Signature CHRISTIE Radford (ASCP) Reported: 12/01/2006 ICD-9 Code(s) V72.31 105 Special [facility] [address] [place] [address] DIGENE HYBRID CAPTURE II HPV TEST Name: Bridgette Harrison : 1950 (Age: 56) Sex: F Location: [facility] Soc. Sec. #: Date Collected: 11/28/2006 Billing #: [id number] Date Received: 11/29/2006 Physician(s): FARRAH GARCIA Source of Specimen: THIN PREP PAP Other Case Numbers: [id number] Results: Low Risk TEST NOT REQUESTED ON THIS SPECIMEN (HPV types 6, 11, 42, 43, 44) High Risk NEGATIVE ( HPV types 16, 18, 31, 33, 35, 39, 45, 51, 52, 56, 58, 59, 68) Reported: 12/04/2006 Electronic Signature mtm Maddie [place] ICD-9 Codes: A: V72.31 Procedures Date CPT Code Description Status Comment 06/08/2018 88679 Brief Emotional/Behav Completed Assessment W/ Scoring Doc Per Standard Inst 06/07/2018 Mammogram Completed Document: 06/05/17 - Digital Mammography DX Callba Document: 06/07/18 - Digital Mammography Screening 10/13/2017 50750 Measure Blood Oxygen Level Completed Single Determination 06/05/2017 13769 Ultrasound Breast Unilateral Completed Real Time W/ [employer] Inc Axilla 05/15/2017 19070 Brief Emotional/Behav Completed Assessment W/ Scoring Doc Per Standard Inst 11/28/2016 80455 Measure Blood Oxygen Level Completed Single Determination 09/26/2016 96515 Measure Blood Oxygen Level Completed Single Determination 08/19/2016 65049 Bone Density Study (Dexa) Axial Completed Skeleton (Hips,Pelvis,Spine) 08/19/2016 Bone Mineral Density Test Completed 06/22/2016 22315 Electrocardiogram Complete Completed 09/28/2015 07958 Measure Blood Oxygen Level Completed Single Determination 02/04/2015 17825 X-Ray Chest Two Views Frontal & Completed Lateral 01/29/2015 56761 Echography Transvaginal Completed 12/31/2014 09835 Endometrial Sampling(BX)In Completed Conjunction W/Coploscopy (Add-On) 12/31/2014 75284 Biopsy Endometrial/Endocervical Completed 12/31/2014 90548 Dilate Cervical Canal Completed Instrumental 12/31/2014 76471 Colposcopy Completed 12/25/2014 97404 Echography Transvaginal Completed Encounters Type Date Location Provider CPT E/M Dx Office Visit 11/29/2017 4:15p [facility] [place] [address] I10 E78.2 B00.9 M79.7 I34.2 J30.9 B37.2 Office Visit 10/13/2017 4:15p [facility] [place] [address] R05 R07.2 Office Visit 06/20/2017 1:45p [facility] [place] [address] B02.9 Office Visit 05/18/2017 11:30a [facility] [place] [address] T80.62xA Office Visit 05/15/2017 11:00a [facility] [place] [address] Z00.00 I10 E78.2 I34.2 B00.9 Z12.11 Z12.31 Z23 Z96.642 M79.7 J30.9 H81.399 Z12.4 H60.63 Z68.37 Office Visit 02/08/2017 4:15p [facility] [place] [address] I34.2 Office Visit 01/03/2017 9:00a [facility] [place] [place] [address] I10 E78.2 M79.7 B00.9 J30.9 Z11.59 I34.2 Z12.11 Z23 Office Visit 11/28/2016 10:30a [facility] [place] [address] J01.90 Office Visit 09/26/2016 10:15a [facility] [place] [address] R05 B00.9 F41.9 I10 Office Visit 08/12/2016 10:00a [facility] [place] [place] [address] Z01.810 I10 M25.562 E78.2 M79.7 Office Visit 06/22/2016 9:00a [facility] [place] [address] Z01.810 M25.562 E78.2 I10 R73.01 M79.7 Office Visit 01/22/2016 10:15a [facility] [place] [address] A09 R51 Office Visit 12/28/2015 8:45a [facility] [place] [place] [address] I10 E78.2 J31.0 M79.7 L40.9 R73.01 Office Visit 10/27/2015 1:45p [facility] [place] [address] I10 Office Visit 09/28/2015 10:30a [facility] [place] [address] R07.9 R05 Office Visit 07/01/2015 8:30a [facility] [place] [place] [address] 401.1 272.2 472.0 715.09 Office Visit 03/06/2015 2:00p [facility] [place] [address] 822.0 401.1 620.2 Office Visit 02/04/2015 1:30p [facility] [place] [address] V72.84 822.0 272.2 401.1 729.1 620.2 786.2 472.0 Office Visit 01/13/2015 4:00p [facility] [place] [place] [address] 627.1 620.2 Office Visit 12/31/2014 1:30p [facility] [place] [place] [address] V71.9 627.1 620.2 Office Visit 12/30/2014 8:30a [facility] [place] [address] 272.2 401.1 473.8 729.1 845.00 Office Visit 12/12/2014 1:45p [facility] [place] [address] 616.10 Plan of Care 06/08/2018 - Eladia Franz MDZ00.00 Encntr for general adult medical exam w/ o abnormal findingsComments:annual physical She reports not having medicare B. Depression screen:upon review of signs and symptoms with exam assessment pt does not appear depressed.Functional capacity and daily living skills: upon review of signs and symptoms through direct questioning, pt appears stable and adequately safe to continue in her current living situation.Screening for breast cancer: as notedScreening for director of personnel cancers (cervical, vaginal, vulvar): as noted Screening for colon cancer: as notedPneumovax 23 on 06/08/18 prevnar 13 given 05/15/17 Tetanus booster 06/23/14onsider Hep A series for travelzostavax done per pt 11/2014 , may get the shingrix after 11/2019Annual flu vax recommendedHealth care proxy recommended to becompleted, papers given for pt to complete.Recommend periodic optho and dental care. Recommend tobacco avoidance Recommend limit alcohol to < 1 per day for womenHealthy lifestyle recommendations. Encouraged healthy diet with meats simply prepared, fresh fruits and veg when able also simply prepared, whole grains, 3 dairies per day non fat. Please consume a healthy omega-3 fat with each meal such as nuts, olive oil, avocado, fish. Encouraged daily exercise 30 - 60 min daily/150min per week. Encouraged at least 2 qrts water per day with more for sweaty exercise. [employer] 7-8 hours of sleep at night. Work on your "happy factors", meaning hobbies and things you do day to day. Engaging in a health lifestyle may decrease your risk for illnesses and may improve your quality of lifeFollow up:turn in fit test due now; next visit in 6 m for oc15 rtn fu fasting labs 5 days [id number] Encounter for immunizationComments:recommend pneumovax 23 to help reduce the risk for pneumonia, this vaccine is in addition to prevnar 13 . pt is [id number] Essential (primary) hypertensionComments:Htn--BPs appear stable and in good control, reminded goal of BP < 130/80 ideally per new guidelines. Continue current meds, please call for medication side effects such as cough, rash or any concerns. Encouraged diet modified in fat and no added salt. Limit alcohol to < 1 per day. Encouraged regular exercise of 30 min most days per week. Encouraged pt to continue to monitor BP and call if > 140/90 on a regular basis. Please call if you feel your blood pressure is under 110 systolicand/or causing you symptoms such as dizziness, lightheadedness , or other concerns.E78.2 Mixed hyperlipidemiaNew Labs:LipidComprehensive Met Panel-[facility]Comments:high cholpatient is high risk per atp IV guidelines and assessment reviewed she is taking less potent lovastatin, has good response. continue current meds for now monitor for side effects of muscle aches or crampswe watch for liver effects with labsPlease call if you have any concerns.Aspirin 81mg daily is also recommended. It no longer needs to be enteric coated. She declines this due to use of guaifenesin and it bothers her stomach For lifestyle, we also recommend: Low fat ( under 30gm per day),low chol diet ( under 300mg per day chol)focus on lean meat, nonfat 1% dairy, increased veg and fruit, whole grains weight lossexercise build to at least 30min per day. Reviewed signs and symptoms of cardiovascular disease.B00.9 Herpesviral infection, unspecifiedComments:h/o recurrent cold sore, discussed likely cause for HSV type I or II. Due to recurrent outbreaks, discussed treatment when they occur with antiviral. Careful instructions in use, take meds at first onset of cold sore sxs, within 24hours. May help to lessen outbreak and related discomfort.M79.7 FibromyalgiaComments:fibromyalgia. symptoms well controlled. Pt declines nsaids due to gi upset. muscle relaxers don't helpshe takes guafenesin 2400mg daily, advised I'm not familiar with that off label use, cautioned there may be risks this this May use moist heat, ice packs, and tylenol as needed for nerve pain. She has been taking diazepam 2mg 1 /2 daily prn, advised she needs to taper this off due to the risks of the medication for sedation, falls, etc.Follow up:Followup:. (Follow up)I34.2 Nonrheumatic mitral (valve) stenosisComments:mitral valve diseasemild to moderate stenosis on echocardiogramcontinue periodic cardiology fu Dr River and Sushant there are no symptoms. watch for dizziness, lightheadedness, feeling faint, etc. call for these sxs [id number] Allergic rhinitis, unspecifiedComments:allergies--Encouraged pt to continue allergy meds during allergy season. Should take daily to gain the most benefit. Call prn increased allergy symptoms to add additional meds. cont care with specialist she has allergy injectionsshe continues on nasonex, change to fluticasone generic discussed,she refuses to change as he reports she reacts to [id number] Encntr screen mammogram for malignant neoplasm of breastComments:Annual mammogram and clinical breast exam with monthly breast self exams discussed. Pt should call/come in if she has any changes in breast self exam or concerns. Advised pt that for those aged 50-74, uspstf recommends mammo every other year , and breast self exam or clinical breast exam need to be decided individually. [employer] society recommends for those age 55 and up , mammo every other yearand to not do annual clinical breast exams. At risk pts should do annually or as directed by specialist recommendations. Currently I am recommending pts do what they feel they should, and that most in this risk category do an annual mammogram and clinical breast exam. If you want to treat breast cancer, then do annual screening. Discussed the new recommendations for breast ultrasound for very dense breasts as an additional test for screening. She asks for annual mammogram and clinical breast exam given ho breast kwfuiO48.11 Encounter for screening for malignant neoplasm of colonNew Labs:Fit(Fecal Occult Blood)Comments:Colon cancer screening discussedRecommend colon cancer screening as it's preventive for colon cancerby removing polyps or small cancers. Recommend either colonoscopy every 10 yr or annual FIT test for blood in the stool. Colonoscopy is the gold standard The idea is to identify cancer early or to identify and remove polyps before they can grow and become cancer. Pt declines referral for imaging study/colonoscopy. Will do FIT card, cards given. If you change your mind and proceed with colonoscopy referral let us knowJ45.20 Mild intermittent asthma, uncomplicatedComments:mild intermittent asthma, uses advair during certain times of yearcare with image consultant, [facility]. Cautioned black box warning for pzpaeyM84.2 Candidiasis of skin and nailComments:pt uses nystatin after swimming she feels it helps reduce her risk for fungal infectioncautioned risks for developing resistant organismsrecommend using otc products [id number] Body mass index (BMI) 38.0- 38.9, adultComments:continue to work on healthy lower calorie diet with regular exercise to work towards weight loss
[2018-07-03 12:29] VITALS: BP 117/58
--- NOTE | 2018-07-03 12:45 | UC ---
Complaint Female HPI - HPI Summary HPI Summary: dysuria x 1 day had uti bout 20 days ago , was placed on Keflex symptoms resolved after antibiotic use , having dysuria and vaginal itching for the past one day no fever, no chills, no flank pain no vaginal discharge - History Of Current Complaint Chief Complaint: UCGU Stated Complaint: RECHECK URINARY COMPLAINT Time Seen by Provider: 07/03/18 12:20 Hx Obtained From: Patient Onset/Duration: Gradual Onset, Lasting Days - 1, Still Present Timing: Constant Severity Initially: Moderate Severity Currently: Moderate Pain Intensity: 1 Character: Burning Aggravating Factor(s): Urination Alleviating Factor(s): Nothing Associated Signs And Symptoms: Negative: Fever, Back Pain, Vaginal Bleeding/ Discharge, Vaginal Discharge, Nausea, Vomiting(# Of Episodes =), Genital Swelling, Genital Blisters, Retained Foregin Body (Specify) - Allergies/Home Medications Allergies/Adverse Reactions: Allergies Allergy/AdvReac Type Severity Reaction Status Date / Time aspirin Allergy interference Verified 07/03/18 12:24 with other meds yellow, blue, purple dyes Allergy Swelling Uncoded 07/03/18 12:24 narcotics AdvReac Severe Vomiting Uncoded 07/03/18 12:24 steroids AdvReac Intermediate heart race Uncoded 07/03/18 12:24 PMH/Surg Hx/FS Hx/Imm Hx Cardiovascular History: Hypertension - Surgical History Surgical History: Yes Surgery Procedure, Year, and Place: 3 ; artificial hip 2013 [place] [place] w/metal. hemmrhoidectomy, left knee 2014 [place]. shoulder. wrist. deviated septum - Family History Known Family History: Positive: Cardiac Disease - Social History Alcohol Use: None Substance Use Type: None Smoking Status (MU): Never Smoked Tobacco Have You Smoked in the Last Year: No - Immunization History Most Recent Tetanus Shot: UTD Review of Systems Constitutional: Negative Skin: Negative Eyes: Negative ENT: Negative Respiratory: Negative Cardiovascular: Negative Gastrointestinal: Negative Genitourinary: Dysuria Motor: Negative Is Patient Immunocompromised?: No All Other Systems Reviewed And Are Negative: Yes Physical Exam Triage Information Reviewed: Yes Appearance: Well-Appearing, No Pain Distress, Well-Nourished Vital Signs: Initial Vital Signs Temp 97.4 F 07/03/18 12:20 Pulse 75 07/03/18 12:20 Resp 16 07/03/18 12:20 BP 117/58 07/03/18 12:20 Pulse Ox 100 07/03/18 12:20 Vital Signs Reviewed: Yes Eye Exam: Normal Eyes: Positive: Conjunctiva Clear ENT: Positive: Normal ENT inspection, Hearing grossly normal, Pharynx normal Neck exam: Normal Neck: Positive: Supple, Nontender, No Lymphadenopathy Respiratory: Positive: Chest non-tender, Lungs clear, Normal breath sounds Cardiovascular: Positive: RRR, No Murmur, Pulses Normal Abdominal Exam: Normal Abdomen Description: Positive: Nontender, No Organomegaly, Bruit. Negative: CVA Tenderness (R), CVA Tenderness (L), Distended, Guarding Bowel Sounds: Positive: Present Skin Exam: Normal Complaint Female Dx - Differential Dx/Diagnosis Provider Diagnoses: dysuria Discharge - Sign-Out/Discharge Documenting (check all that apply): Patient Departure All imaging exams completed and their final reports reviewed: No Studies - Discharge Plan Condition: Stable Disposition: HOME Patient Education Materials: Dysuria (ED) Referrals: Eladia Franz MD [Primary Care Provider] - 5 Days Additional Instructions: normal urine analysis follow up with your pcp in 5 to 7 days if cont. to have symptoms - Billing Disposition and Condition Condition: STABLE Disposition: Home
== END 2018-07-03 12:45 | disposition home or self-care (01) ==
LOC: UCCORT 12:08
DX: R30.0 Dysuria (principal); Z88.6 Allergy status to analgesic agent; Z88.5 Allergy status to narcotic agent; Z88.8 Allergy status to other drugs, medicaments and biological substances
CPT/HCPCS: 81003; 99211; G0463

== ENCOUNTER 2019-02-12 11:28 | Day surgery (SDC) | payer BC, OTHER ==
--- NOTE | 2019-02-08 07:59 | HP ---
PREOPERATIVE HISTORY AND PHYSICAL: DATE OF ADMISSION/SURGERY: 02/12/19 DATE OF OFFICE VISIT/ENCOUNTER: 02/07/19 ATTENDING SURGEON: Madonna Bray MD* (dictated by JOSE Nguyen). PROCEDURE: Open reduction and internal fixation, right elbow. HISTORY OF PRESENT ILLNESS: This is a 68-year-old female who sustained injury to her right elbow and her right ankle on 01/17/19. She slipped and fell on some black ice. She was initially followed by a doctor at [facility]. Initial x- rays showed that the fracture at the olecranon process was not displaced, but it since has displaced. She was seen by Dr. Bray recently for further evaluation and treatment considerations. The patient has been in a CAM walker for an ankle fracture, which is a nondisplaced lateral malleolus fracture. She is able to bear weight fully in the CAM walker for ambulation. The pain in her ankle is quite mild. Pain in her elbow is more significant and subsequent x-rays show the olecranon fracture to now be considerably displaced with a 2 cm gap. Additionally, there is a coronoid fracture, which is minimally displaced and a radial head fracture which is also minimally displaced. The patient denies any numbness or tingling in her arm. She has been treated in a posterior splint and sling. She reports that she initially had several blisters on her arm, but they have now healed. After evaluation by Dr. Bray and review of x-rays, the patient has consented to proceed with surgical intervention at this time in the form of an open reduction and internal fixation, right elbow. She will continue to treat her right ankle nonoperatively. PAST MEDICAL HISTORY: 1. Hypercholesterolemia. 2. Asthma. 3. Hypertension. 4. Arthritis. 5. Fibromyalgia. 6. History of a heart murmur. PAST SURGICAL HISTORY: 1. x3. 2. Left wrist tendon surgery. 3. Left total hip arthroplasty. 4. Open reduction and internal fixation, left knee. 5. Hemorrhoidectomy. 6. Oophorectomy. 7. Surgery for a deviated septum. CURRENT MEDICATIONS: 1. Advair Diskus 250/50 mcg 1 inhalation twice a day. 2. Amlodipine besylate 10 mg daily. 3. Amoxicillin 500 mg 1 tab 1 hour prior to surgery. 4. Benzonatate 200 mg 1 tab 3 times a day. 5. Coenzyme Q10. 6. Guanfacine HCl. 7. Ibuprofen p.r.n. 8. Lovastatin 10 mg daily. 10. Multivitamin daily. 11. Nasonex 50 mcg 2 sprays each nostril every day. 12. Tylenol p.r.n. 13. Vitamin B6 250 mg daily. ALLERGIES: No known drug allergies. The patient has a skin sensitivity to elastic bandages. FAMILY MEDICAL HISTORY: Heart disease, hypertension, rheumatoid arthritis. 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 She denies tobacco use, recreational drug use, and does not drink alcohol. REVIEW OF SYSTEMS: Negative for general, cephalic, cardiovascular, GI, , other musculoskeletal, integumentary, endocrine, neurologic, and hematologic symptoms. Infectious Disease: Negative for history of MRSA, hepatitis C, HIV. PHYSICAL EXAMINATION GENERAL: Well-developed, well-nourished 68-year-old female, in no acute distress. VITAL SIGNS: Height 5 feet 4 inches, weight 227 pounds. Pulse rate 64, blood pressure 116/72. HEENT: Normocephalic, atraumatic. Pupils are equal, round, and reactive to light and accommodation. Extraocular movements are intact. Throat is clear. NECK: Supple. No palpable lymph nodes. PULMONARY: Lungs are clear to auscultation bilaterally. No wheezes, rales, or rhonchi. CARDIOVASCULAR: Regular rate and rhythm. S1, S2. Mild heart murmur detected on auscultation. No rubs or gallops. No edema. ABDOMEN: Positive bowel sounds. Soft, nontender. NEUROLOGICAL: Alert and oriented x3. Cranial nerves II through XII are intact. Sensation is intact to light touch. MUSCULOSKELETAL: On exam of her right upper extremity, she has minimal swelling mostly around the elbow. She can flex and extend her fingers into a fist. Skin is intact. Neurovascular function is intact. Her elbow motion is quite limited. IMAGING STUDIES: X-rays of the right elbow show a displaced fracture of the olecranon with significant displacement. IMPRESSION: 1. Right olecranon fracture. 2. Right radial head fracture. 3. Right coronoid fracture. 4. A right lateral malleolus fracture. PLAN: The patient is scheduled to undergo an open reduction and internal fixation of the right elbow with Dr. Bray on 02/12/19. She will return to the office 10 days postop for followup and suture removal. Prescriptions for [place] and Zofran were e-scribed to the patient's pharmacy for postoperative pain management and nausea. JOSE NGUYEN [id number]/[facility] #: [id number] FRANK
[~2019-02-12 11:28] MED LIST: Buffered Lidocaine 1% SYRIN* 1 ML/SYRINGE INTRADERM PRN; Bupivacaine 0.5% SDV PF* 30ML VIAL ONE; Famotidine IV* 10 MG/ML 2 ML (20 mg) IV ONE; Lactated Ringers 1000 ML Bag* 1,000 ML IV SCH; Scopolamine 1.5 mg* PATCH TRANSDERM ONE
[2019-02-12] MEDS ORDERED: Acetaminophen TAB* 325 MG PO PRN (11:59)
[2019-02-12] MEDS ORDERED: DiMENhydriNATE IV* 50 MG/ML VIAL IV PUSH PRN (11:59)
[2019-02-12] MEDS ORDERED: ceFAZolin 2 GM in NS PREMIX(*) 2 GM/100 ML BAG IVPB ONE (12:11)
[2019-02-12] MEDS ORDERED: Famotidine IV* 10 MG/ML 2 ML (20 mg) ONE (12:11)
[2019-02-12] MEDS ORDERED: Scopolamine 1.5 mg* PATCH ONE (12:11)
[2019-02-12] MEDS ORDERED: Midazolam* 1 MG/ML 5 ML VIAL (5 MG) ONE (13:00)
[2019-02-12] MEDS ORDERED: fentaNYL* 50 MCG/ML 2 ML VIAL (100 MCG VIAL) ONE (13:00)
[2019-02-12] MEDS ORDERED: Lidocaine 2% PF * 5 ML VIAL ONE (14:10)
[2019-02-12] MEDS ORDERED: DiMENhydriNATE IV* 50 MG/ML VIAL ONE (14:10)
[2019-02-12] MEDS ORDERED: Dexamethasone IV* 4 MG/ML 1 ML (4 MG) ONE (14:10)
[2019-02-12] MEDS ORDERED: Propofol* 10 MG/ML 20 ML BTL ONE (14:10)
[2019-02-12] MEDS ORDERED: Ketorolac INJ* 30 MG/ML 1 ML VIAL ONE (14:10)
[2019-02-12] MEDS ORDERED: Ondansetron INJ* 2 MG/ML VIAL ONE (14:10)
[2019-02-12] MEDS ORDERED: HYDROmorphone INJ* 0.5 MG/0.5 ML SYRINGE ONE (14:35)
[2019-02-12] MEDS ORDERED: EPHEDrine (Pressors)* 50 MG/ML VIAL ONE (14:51)
[2019-02-12] MEDS ORDERED: Glycopyrrolate IV* 0.2 MG/ML 1 ML VIAL ONE (15:15)
[2019-02-12] MEDS ORDERED: Metoclopramide IV* 5 MG/ML 2 ML VIAL ONE (15:38)
[2019-02-12] MEDS ORDERED: HYDROcodone/ACETAMIN 5-325 MG* 1 TAB ONE (16:09)
[2019-02-12 16:19] VITALS: BP 136/75
--- NOTE | 2019-02-13 03:36 | OP ---
DATE OF OPERATION: 02/12/19 - [facility] DATE OF : 54 SURGEON: Madonna Bray MD NUCLEAR ENGINEERING TECHNICIAN: JOSE Nguyen ANESTHESIA: General. PRE-OP DIAGNOSIS: Displaced fracture of the right olecranon. POST-OP DIAGNOSIS: Displaced fracture of the right olecranon. OPERATIVE PROCEDURE: Open reduction, internal fixation of the right olecranon. ESTIMATED BLOOD LOSS: Zero. TOURNIQUET TIME: About an hour. INDICATIONS FOR PROCEDURE: Bridgette is a 68-year-old female who suffered a fall and injured her right elbow. She has a coronoid fracture which is minimally displaced and quite small. She has a healing radial head fracture and a displaced fracture of the olecranon with about 2 cm of displacement. She was initially treated for a nondisplaced fracture but the fracture has displaced and she presents now for open reduction and internal fixation. DESCRIPTION OF PROCEDURE: The patient was brought to the operating room, was given a general anesthetic and placed in the supine position on the operating table with the tourniquet around her right upper arm. Skin of her right upper extremity was prepped and draped in the usual sterile fashion. The upper extremity was exsanguinated and the tourniquet elevated to 250 mmHg. A longitudinal incision was made on the subcutaneous border of the ulna and posteriorly to the proximal fragment. The fracture fragments were freed up and the edges of the fracture dissected subperiosteally to allow me to see exactly where the fracture reduction should be. There was some damage to the articular surface of the distal humerus at the trochlea. The wound was copiously irrigated with saline. The fracture was reduced with bone clamps. Drill holes were made in the shaft of the ulna about 3 inches distal to the fracture site. Two 0.062 inch K-wires were passed through the proximal fragment and into the anterior cortex of the distal fragment distal to the coronoid process. The positions of the pins were checked on the C-arm in the AP and lateral views and found to be satisfactory. An 18-gauge wire was then passed through the drill holes in the distal fragment and in [id number] fashion deep to the triceps tendon. The wire was then twisted until it was tight and with range of motion of the elbow in flexion and extension, there was no gapping at the fracture site. The pins were all bent and cut and then the wound was again irrigated with saline. The subcutaneous tissue was closed with 2-0 Polysorb and the skin with skin shandra. The wound was dressed with Xeroform, 4x4, Webril, and a posterior splint in about 80 degrees of flexion. The patient was awakened from general anesthesia and brought to the recovery room in good condition. [id number]/[facility] #: [id number] FRANK
== END 2019-02-12 17:04 | disposition home or self-care (01) ==
LOC: OREAST 11:28
PROVIDERS: ATTEND Orthopaedic Surgery
DX: S52.031A Displaced fracture of olecranon process with intraarticular extension of right ulna, initial encounter for closed fracture (principal); W00.0XXA Fall on same level due to ice and snow, initial encounter; Y92.9 Unspecified place or not applicable; I05.0 Rheumatic mitral stenosis; M19.90 Unspecified osteoarthritis, unspecified site; M79.7 Fibromyalgia; E78.00 Pure hypercholesterolemia, unspecified; J45.909 Unspecified asthma, uncomplicated; I10 Essential (primary) hypertension
CPT/HCPCS: 76000; A9270-GY; C1776; J0690; J1100; J1170; J1240; J1885; J2250; J2405; J2704; J2765; J3010

== ENCOUNTER 2019-04-08 07:43 | Emergency (ER) | payer BC, OTHER ==
--- OUTSIDE RECORDS SUMMARY | 2019-04-08 07:55 | XMS REPORT | Continuity of Care Document ---
:1950 External Reference #:[id number] Author Name Joseph Noyoladickson Care Team Providers Name Role Phone Eladia Franz MD Primary Care Physician Unavailable Payers Date Identification Numbers Payment Provider Subscriber Policy Number: [id number] [facility] Camilo Harrison PayID: [id number] [address] [place] [address] Policy Number: [id number] [employer] Camilo Harrison PayID: [id number] [address] [place] [address] Advance Directives Description No Information Available Problems Description No Information Family History Date Family Member(s) Observation Comments General Heart Disease General Hypertension General Rheumatoid Arthritis Social History Type Date Description Comments Sex Unknown Lives With Spouse Occupation Currently Working ETOH Use Denies alcohol use Tobacco Use Start: Unknown Patient has never smoked Smoking Status Reviewed: 03/21/19 Patient has never smoked Exercise Type/Frequency Exercises regularly Allergies, Adverse Reactions, Alerts Active Allergies Reaction Severity Comments Date Elastic Bandage 02/07/2019 Medications Active Medications SIG Qnty Indications Ordering Provider Date [place] one tab by mouth 15tabs Madonna Bray, 02/07/2019 5-325mg Tablets every 4-6 hours as M.D. needed pain Zofran 1 tab po q 6 hours 30tabs Madonnaester Bray, 02/07/2019 4mg Tablets prn nausea M.D. Advair Diskus Inhale One puff By Unknown Mouth Twice A Day 250-50mcg/Dose Aerosol Lovastatin Eladia Franz, 10mg MD Tablets Multivitamin Adult Unknown Co-Enzyme Q-10 Unknown Vitamin B6 1 by mouth every Unknown 250mg day Tablets Benzonatate one three times a Unknown 200mg day as needed Capsules cough Amlodipine Besylate 1 by mouth every Unknown day 10mg Tablets Nasonex 2 spray each Unknown 50mcg/Act nostril intranasal Suspension every day Amoxicillin 1 by mouth 1 hour Unknown 500mg prior to dental Capsules surgery Guanfacine HCL Unknown Tylenol as needed Unknown Ibuprofen as needed Unknown Immunizations Description No Information Available Vital Signs Date Vital Result Comment 03/21/2019 10:52am Height 64 inches 5'4" Weight 213.00 lb Heart Rate 76 /min BP Systolic 126 mmHg BP Diastolic 82 mmHg Respiratory Rate 14 /min Pain Level 1 BMI (Body Mass Index) 36.6 kg/m2 02/21/2019 10:59am Height 64 inches 5'4" Weight 227.00 lb BP Systolic 124 mmHg BP Diastolic 70 mmHg Body Temperature 97.0 F Pain Level 3 BMI (Body Mass Index) 39.0 kg/m2 02/07/2019 1:14pm Height 64 inches 5'4" Weight 227.00 lb Heart Rate 64 /min BP Systolic 116 mmHg BP Diastolic 72 mmHg Respiratory Rate 18 /min Pain Level 6 BMI (Body Mass Index) 39.0 kg/m2 Results Description No Information Available Procedures Date Code Description Status 02/12/2019 98063 FX Ulna Proximal (Olecranon) Open TX W/Wo Fixation Completed 02/12/2019 22002 FX Ulna Proximal (Olecranon) Open TX W/Wo Fixation Completed Encounters Type Date Location Provider Dx Diagnosis Office Visit 02/07/2019 [facility] Bray, S52.031A Disp fx of 1:[facility] w intartic extn right ulna, init S52.124A Nondisp fx of head of right radius, init for clos fx S52.044A Nondisp fx of coronoid process of right ulna, init S82.64xA Nondisp fx of lateral malleolus of right fibula, init Plan of Treatment Future Appointment(s):04/11/2019 9:30 am [facility] Madonna Bray M.D.S52.031D Displaced fracture of olecranon process with intraarticularNew Xrays:Elbow Right 2 VWS, Ordered: Follow up:Follow up: 3-4 [id number] Nondisplaced fracture of head of right radius, subsequent en
[2019-04-08 08:13] VITALS: BP 124/70
--- NOTE | 2019-04-08 08:26 | UC ---
General HPI - HPI Summary HPI Summary: pt thinks she was bitten behind her R ear Monday night. Monday am she noted the swelling and states she scratched the site. no fever or hx MRSA. there is worsening redness and swelling since onset. - History of Current Complaint Chief Complaint: Jose Antonio Stated Complaint: SKIN COMPLAINT Time Seen by Provider: 04/08/19 08:24 Hx Obtained From: Patient Onset/Duration: Gradual Onset Timing: Constant Pain Intensity: 0 Associated Signs & Symptoms: Negative: Headache - Allergy/Home Medications Allergies/Adverse Reactions: Allergies Allergy/AdvReac Type Severity Reaction Status Date / Time aspirin Allergy interference Verified 04/08/19 08:13 with other meds epinepherine Allergy Tachycardia Uncoded 04/08/19 08:13 yellow, blue, purple dyes Allergy Swelling Uncoded 04/08/19 08:13 narcotics AdvReac Severe Vomiting Uncoded 04/08/19 08:13 steroids AdvReac Intermediate heart race Uncoded 04/08/19 08:13 Home Medications: Home Medications Fexofenadine/Pseudoephedrine [Shakira-D 24 Hour Tablet] 1 each PO PRN 04/08/19 [ History] PMH/Surg Hx/FS Hx/Imm Hx - Additional Past Medical History Additional PMH: fibromyalgia Endocrine History: Dyslipidemia Cardiovascular History: Hypertension Respiratory History: Asthma - Surgical History Surgical History: Yes Surgery Procedure, Year, and Place: ovaries removed. 3 ;. artificial hip 2013 [place] w[place]. [place] 2015 [place]. shoulder right, 2003, [place]. wrist left , 2011. deviated septum, 2008. RIGHT [place] - Family History Known Family History: Positive: Cardiac Disease - Social History Alcohol Use: None Substance Use Type: None Smoking Status (MU): Never Smoked Tobacco Have You Smoked in the Last Year: No - Immunization History Most Recent Tetanus Shot: UTD Vaccination Up to Date: Yes Review of Systems All Other Systems Reviewed And Are Negative: No Constitutional: Negative: Fever, Chills Skin: Positive: Rash ENT: Negative: Ear Ache Neurological: Negative: Headache Physical Exam Triage Information Reviewed: Yes Appearance: Well-Appearing Vital Signs: Initial Vital Signs Temp 96.8 F 04/08/19 08:06 Pulse 77 04/08/19 08:06 Resp 16 04/08/19 08:06 BP 124/70 04/08/19 08:06 Pulse Ox 96 04/08/19 08:06 Vital Signs Reviewed: Yes Eyes: Positive: Conjunctiva Clear ENT: Positive: Pharynx normal, Other - No auricular adenopathy.. Negative: Nasal drainage, Trismus Neck: Positive: Supple, Nontender, No Lymphadenopathy Respiratory: Positive: Lungs clear, Normal breath sounds Cardiovascular: Positive: RRR Musculoskeletal: Positive: ROM Intact Neurological: Positive: Alert Psychological: Positive: Age Appropriate Behavior Skin Exam: Normal, Other - Area behind R ear has an excoriated insect bite with mild induration and surrounding erythema. The erythema extends down into her R mandibular angle area. No fluctuance or tenderness. Course/Dx - Differential Dx - Multi-Symptom Differential Diagnoses: Other - no concern for abscess or parotid gland infection. - Diagnoses Provider Diagnosis: Infected insect bite Discharge - Sign-Out/Discharge Documenting (check all that apply): Patient Departure All imaging exams completed and their final reports reviewed: No Studies - Discharge Plan Condition: Stable Disposition: HOME Prescriptions: Cephalexin CAP* [Keflex CAP*] 500 mg PO TID 10 Days #30 cap predniSONE [Prednisone 20 MG TAB] 40 mg PO DAILY 3 Days #6 tablet Patient Education Materials: Cellulitis (DC), Insect Bite or Sting (ED) Referrals: Eladia Franz MD [Primary Care Provider] - 3 Days - Billing Disposition and Condition Condition: STABLE Disposition: Home - Attestation Statements Provider Attestation: Per institutional requirements, I have reviewed the chart, however, I was not consulted specifically or made aware of this patient by the midlevel provider. I did not personally evaluate, interact with , or disposition this patient.
== END 2019-04-08 08:42 | disposition home or self-care (01) ==
LOC: UCCORT 07:43
DX: S00.86XA Insect bite (nonvenomous) of other part of head, initial encounter (principal); L08.9 Local infection of the skin and subcutaneous tissue, unspecified; W57.XXXA Bitten or stung by nonvenomous insect and other nonvenomous arthropods, initial encounter; I10 Essential (primary) hypertension; Z88.5 Allergy status to narcotic agent; Z88.8 Allergy status to other drugs, medicaments and biological substances
CPT/HCPCS: 99212; G0463